=== PATIENT | female | born 1975 | race Hispanic/Latino ===

== ENCOUNTER 2019-03-16 14:38 | Emergency (ER) | payer OTHER ==
[2019-03-16] MEDS ORDERED: LIDOCAINE 2% MPF 5 ML VIAL ONE (15:09)
--- NOTE | 2019-03-16 16:07 | EDPHYS ---
Physician Documentation [facility] Name: Krystyna Colon Age: 43 yrs Sex: Female : 1975 Arrival Date: 03/16/2019 Time: 14:40 Bed 20 Private MD: ED Physician Hany Saavedra HPI: 03/16 16:32 This 43 yrs old Female presents to ER via Ambulatory with complaints of kb Laceration - Finger. 16:33 The patient has a laceration related to: cooking, occurred at home, and there are no kb complicating factors. The injury was accidental. The laceration(s) is(are) located on the palmar aspect of proximal phalanx of left index finger. Onset: The symptoms/episode began/occurred just prior to arrival. Associated signs and symptoms: The patient has no apparent associated signs or symptoms. The patient has not experienced similar symptoms in the past. The patient has not recently seen a physician. Historical: - Allergies: 14:43 Iodine; sv - Immunization history:: Adult Immunizations up to date. - Social history:: Smoking status: . - Ebola Screening: : No symptoms or risks identified at this time. ROS: 16:22 Constitutional: Negative for fever, chills, and weight loss, Cardiovascular: Negative kb for chest pain, palpitations, and edema, Respiratory: Negative for shortness of breath, cough, wheezing, and pleuritic chest pain, Abdomen/GI: Negative for abdominal pain, nausea, vomiting, diarrhea, and constipation, MS/Extremity: Negative for injury and deformity, Neuro: Negative for headache, weakness, numbness, tingling, and seizure. 16:22 Skin: Positive for laceration(s), of the palmar aspect of proximal phalanx of left index finger. Exam: 16:19 Constitutional: This is a well developed, well nourished patient who is awake, alert, kb and in no acute distress. Head/Face: Normocephalic, atraumatic. ENT: Nares patent. No nasal discharge, no septal abnormalities noted. Tympanic membranes are normal and external auditory canals are clear. Oropharynx with no redness, swelling, or masses, exudates, or evidence of obstruction, uvula midline. Mucous membranes moist. Neck: Trachea midline, no thyromegaly or masses palpated, and no cervical lymphadenopathy. Supple, full range of motion without nuchal rigidity, or vertebral point tenderness. No Meningismus. Chest/axilla: Normal chest wall appearance and motion. Nontender with no deformity. No lesions are appreciated. Cardiovascular: Regular rate and rhythm with a normal S1 and S2. No gallops, murmurs, or rubs. Normal PMI, no JVD. No pulse deficits. Respiratory: Lungs have equal breath sounds bilaterally, clear to auscultation and percussion. No rales, rhonchi or wheezes noted. No increased work of breathing, no retractions or nasal flaring. Abdomen/GI: Soft, non-tender, with normal bowel sounds. No distension or tympany. No guarding or rebound. No evidence of tenderness throughout. MS/ Extremity: Pulses equal, no cyanosis. Neurovascular intact. Full, normal range of motion. Neuro: Awake and alert, GCS 15, oriented to person, place, time, and situation. Cranial nerves II-XII grossly intact. Motor strength 5/5 in all extremities. Sensory grossly intact. Cerebellar exam normal. Normal gait. 16:19 Skin: injury, laceration(s), the wound is approximately 2 cm(s), of the palmar aspect of proximal phalanx of left index finger, that can be described as clean, no foreign body, linear, with mild bleeding. Vital Signs: 14:43 BP 109 / 66; Pulse 87; Resp 16; Temp 98.4; Pulse Ox 99% ; Weight 89.81 kg; sv Procedures: 16:04 Nerve block: (digital) of palmar aspect of proximal phalanx of left index finger kb Medication: Lidocaine 1% without epinephrine Marcaine 0.5%, Amount: 4 mls were injected, Effect: the patient's symptoms are unchanged, Set up for procedure. Performed by Kyleigh LONG Patient tolerated well. Laceration: 16:04 Wound Repair of 2cm ( 0.8in ) subcutaneous laceration to left index finger. Linear kb shaped.. Distal neuro/vascular/tendon intact. Anesthesia: Digital block administered with 1% lidocaine. Wound prep: Extensive cleansing with betadine by me, Wound irrigation with saline by ca. Skin closed with 6 5-0 Prolene using interrupted sutures and sterile technique. Dressed with Neosporin. Patient tolerated well. MDM: 15:03 Patient medically screened. kb 16:04 Data reviewed: vital signs, nurses notes. Data interpreted: Pulse oximetry: on room air kb is 99 %. Interpretation: normal. Counseling: I had a detailed discussion with the patient and/or guardian regarding: the historical points, exam findings, and any diagnostic results supporting the discharge/admit diagnosis, the need for outpatient follow up, a family practitioner, to return to the emergency department if symptoms worsen or persist or if there are any questions or concerns that arise at home. Administered Medications: No medications were administered Disposition: 03/17 07:30 Co-signature as Attending Physician, Hany Saavedra MD I agree with the assessment and [facility] plan of care. Disposition: 03/16/19 16:06 Discharged to Home. Impression: Laceration without foreign body of left index finger without damage to nail. - Condition is Stable. - Discharge Instructions: Laceration Care, Adult, [id number]. - Medication Reconciliation Form, Thank You Letter, Antibiotic Education, Prescription Opioid Use form. - Follow up: Emergency Department; When: As needed; Reason: Worsening of condition. Follow up: Private Physician; When: 2 - 3 days; Reason: Recheck today's complaints, Continuance of care, Re-evaluation by your physician. Signatures: Kyleigh Benito, ABIMBOLA-C RETAIL SUPPORT SPECIALIST-Sally Jo RN RN sv Anderson, Corey, MD MD cha Attema, Lee RN RN la1 Corrections: (The following items were deleted from the chart) 03/16 16:26 16:06 03/16/2019 16:06 Discharged to Home. Impression: Laceration without foreign body la1 of left index finger without damage to nail. Condition is Stable. Forms are Medication Reconciliation Form, Thank You Letter, Antibiotic Education, Prescription Opioid Use. Follow up: Emergency Department; When: As needed; Reason: Worsening of condition. Follow up: Private Physician; When: 2 - 3 days; Reason: Recheck today's complaints, Continuance of care, Re-evaluation by your physician. kb
--- NOTE | 2019-03-16 16:07 | ER ---
Nurse's Notes [facility] Name: Krystyna Colon Age: 43 yrs Sex: Female : 1975 Arrival Date: 03/16/2019 Time: 14:40 Bed 20 Private MD: Diagnosis: Laceration without foreign body of left index finger without damage to nail Presentation: 03/16 14:42 Presenting complaint: Patient states: left 2nd digit laceration with a knife while sv cutting meat at home. Transition of care: patient was not received from another setting of care. Complicating Factors: There are no complicating factors for this patient. Onset of symptoms was March 16, 2019. Risk Assessment: Do you want to hurt yourself or someone else? Patient reports no desire to harm self or others. Initial Sepsis Screen: Does the patient meet any 2 criteria? No. Patient's initial sepsis screen is negative. Does the patient have a suspected source of infection? No. Patient's initial sepsis screen is negative. Care prior to arrival: None. 14:42 Method Of Arrival: Ambulatory sv 14:42 Acuity: ADRIANE 3 sv Triage Assessment: 14:42 General: Appears in no apparent distress. comfortable, Behavior is calm, cooperative, sv appropriate for age. Pain: Complains of pain in left index finger. Neuro: Level of Consciousness is awake, alert, obeys commands, Gait is steady. Respiratory: Respiratory effort is even, unlabored, Respiratory pattern is regular, symmetrical. Injury Description: Laceration sustained to left index finger. Historical: - Allergies: 14:43 Iodine; sv - Immunization history:: Adult Immunizations up to date. - Social history:: Smoking status: . - Ebola Screening: : No symptoms or risks identified at this time. Screenin:13 Abuse screen: Denies threats or abuse. Nutritional screening: No deficits noted. la1 Tuberculosis screening: No symptoms or risk factors identified. Fall Risk None identified. Assessment: 15:11 General: Appears in no apparent distress. Behavior is calm, cooperative. Pain: la1 Complains of pain in left index finger. Neuro: Level of Consciousness is awake, alert, obeys commands, Oriented to person, place, time, situation. Cardiovascular: Capillary refill < 3 seconds Patient's skin is warm and dry. Respiratory: Airway is patent Respiratory effort is even, unlabored, Respiratory pattern is regular, symmetrical. GI: No signs and/or symptoms were reported involving the gastrointestinal system. : No signs and/or symptoms were reported regarding the genitourinary system. Musculoskeletal: Circulation, motion, and sensation intact. Injury Description: Laceration sustained to left index finger is contaminated, 0.5 to 2.5 cm long. Vital Signs: 14:43 BP 109 / 66; Pulse 87; Resp 16; Temp 98.4; Pulse Ox 99% ; Weight 89.81 kg; sv ED Course: 14:40 Patient arrived in ED. as 14:42 Triage completed. sv 14:44 Arm band placed on. sv 14:57 Thomas Hollins, RN is Primary Nurse. la1 15:02 Kyleigh Benito FNP-C [facility]. kb 15:03 Hany Saavedra MD is Attending Physician. kb 15:13 Patient has correct armband on for positive identification. la1 16:25 No provider procedures requiring assistance completed. Patient did not have IV access la1 during this emergency room visit. Administered Medications: No medications were administered Outcome: 16:06 Discharge ordered by MD. kb 16:25 Discharged to home ambulatory. la1 16:25 Condition: stable 16:25 Discharge instructions given to patient, Instructed on discharge instructions, follow up and referral plans. medication usage, Demonstrated understanding of instructions, follow-up care. 16:26 Patient left the ED. la1 Signatures: Kyleigh Benito FNP-C FNP-Ckb Verde, Stephanie, RN RN sv Martinez, Amelia as Attema, Lee, RN RN la1
== END 2019-03-16 16:26 | disposition home or self-care (01) ==
LOC: ER 14:38
PROC: 0JQK0ZZ Repair Left Hand Subcutaneous Tissue and Fascia, Open Approach (ICD-10-PCS; principal; 2019-03-16)
DX: S61.211A Laceration without foreign body of left index finger without damage to nail, initial encounter (principal); W45.8XXA Other foreign body or object entering through skin, initial encounter; Y93.G3 Activity, cooking and baking; Y92.000 Kitchen of unspecified non-institutional (private) residence as the place of occurrence of the external cause; Z91.048 Other nonmedicinal substance allergy status
CPT/HCPCS: 64450; 99281

== ENCOUNTER 2019-03-30 07:47 | Emergency (ER) | payer OTHER ==
--- NOTE | 2019-03-30 08:27 | EDPHYS ---
Physician Documentation [facility] Name: Krystyna Colon Age: 43 yrs Sex: Female : 1975 Arrival Date: 03/30/2019 Time: 07:48 Bed 14 Private MD: SHANTEL Physician Hany Saavedra HPI: 03/30 08:18 This 43 yrs old Female presents to ER via Ambulatory with complaints of Suture gwyn Removal. 08:18 The patient has sutures on the left hand. Previous treatment: The patient was initially gwyn treated 15 day(s) ago. Sutures/kulwinder progress: The patient has no c/o's. The wound is well-healing with no redness, swelling, discharge, or dehiscence reported. The patient has not experienced similar symptoms in the past. 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 - Ebola Screening: : Patient negative for fever greater than or equal to 101.5 degrees Fahrenheit, and additional compatible Ebola Virus Disease symptoms Patient denies exposure to infectious person Patient denies travel to an Ebola-affected area in the 21 days before illness onset No symptoms or risks identified at this time. - Social history:: Smoking status: unknown. ROS: 08:18 Constitutional: Negative for fever, chills, and weight loss, Eyes: Negative for injury, gwyn pain, redness, and discharge, ENT: Negative for injury, pain, and discharge, Neck: Negative for injury, pain, and swelling, Cardiovascular: Negative for chest pain, palpitations, and edema, Respiratory: Negative for shortness of breath, cough, wheezing, and pleuritic chest pain, Abdomen/GI: Negative for abdominal pain, nausea, vomiting, diarrhea, and constipation, Back: Negative for injury and pain, : Negative for injury, bleeding, discharge, and swelling, Skin: Negative for injury, rash, and discoloration, Neuro: Negative for headache, weakness, numbness, tingling, and seizure, Psych: Negative for depression, anxiety, suicide ideation, homicidal ideation, and hallucinations, Allergy/Immunology: Negative for hives, rash, and allergies, Endocrine: Negative for neck swelling, polydipsia, polyuria, polyphagia, and marked weight changes, Hematologic/Lymphatic: Negative for swollen nodes, abnormal bleeding, and unusual bruising. 08:18 MS/extremity: Positive for tenderness. Exam: 08:18 Constitutional: This is a well developed, well nourished patient who is awake, alert, gwyn and in no acute distress. Head/Face: Normocephalic, atraumatic. Eyes: Pupils equal round and reactive to light, extra-ocular motions intact. Lids and lashes normal. Conjunctiva and sclera are non-icteric and not injected. Cornea within normal limits. Periorbital areas with no swelling, redness, or edema. ENT: Nares patent. No nasal discharge, no septal abnormalities noted. Tympanic membranes are normal and external auditory canals are clear. Oropharynx with no redness, swelling, or masses, exudates, or evidence of obstruction, uvula midline. Mucous membranes moist. Neck: Trachea midline, no thyromegaly or masses palpated, and no cervical lymphadenopathy. Supple, full range of motion without nuchal rigidity, or vertebral point tenderness. No Meningismus. Chest/axilla: Normal chest wall appearance and motion. Nontender with no deformity. No lesions are appreciated. Cardiovascular: Regular rate and rhythm with a normal S1 and S2. No gallops, murmurs, or rubs. Normal PMI, no JVD. No pulse deficits. Respiratory: Lungs have equal breath sounds bilaterally, clear to auscultation and percussion. No rales, rhonchi or wheezes noted. No increased work of breathing, no retractions or nasal flaring. Abdomen/GI: Soft, non-tender, with normal bowel sounds. No distension or tympany. No guarding or rebound. No evidence of tenderness throughout. Back: No spinal tenderness. No costovertebral tenderness. Full range of motion. MS/ Extremity: Pulses equal, no cyanosis. Neurovascular intact. Full, normal range of motion. Neuro: Awake and alert, GCS 15, oriented to person, place, time, and situation. Cranial nerves II-XII grossly intact. Motor strength 5/5 in all extremities. Sensory grossly intact. Cerebellar exam normal. Normal gait. Psych: Awake, alert, with orientation to person, place and time. Behavior, mood, and affect are within normal limits. 08:18 Skin: Appearance: Color: normal in color, Temperature: normal temperature, Moisture: normal moisture, petechiae, not noted, ecchymosis, not noted, flushing, not noted, diaphoresis is not appreciated. Vital Signs: 08:07 BP 96 / 60; Pulse 68; Resp 16; Temp 98.2; Pulse Ox 100% ; Pain 0/10; iw MDM: 08:06 Patient medically screened. [facility] 03/30 08:18 Order name: Suture Removal; Complete Time: 08:32 [facility] Administered Medications: No medications were administered Disposition: 03/30/19 08:20 Discharged to Home. Impression: Encounter for removal of sutures. - Condition is Stable. - Discharge Instructions: Stitches, Kulwinder, or Adhesive Wound Closure, Suture Removal, Care After. - Medication Reconciliation Form, Thank You Letter, Antibiotic Education, Prescription Opioid Use form. - Follow up: Private Physician; When: 5 - 6 days; Reason: Recheck today's complaints, Continuance of care, Re-evaluation by your physician. - Problem is new. - Symptoms have improved. Signatures: Hany Saavedra MD MD cha Williams, Irene RN RN Corrections: (The following items were deleted from the chart) 08:37 08:20 03/30/2019 08:20 Discharged to Home. Impression: Encounter for removal of iw sutures. Condition is Stable. Forms are Medication Reconciliation Form, Thank You Letter, Antibiotic Education, Prescription Opioid Use. Follow up: Private Physician; When: 5 - 6 days; Reason: Recheck today's complaints, Continuance of care, Re-evaluation by your physician. Problem is new. Symptoms have improved. [facility]
--- NOTE | 2019-03-30 08:27 | ER ---
Nurse's Notes [facility] Name: Krystyna Colon Age: 43 yrs Sex: Female : 1975 Arrival Date: 03/30/2019 Time: 07:48 Bed 14 Private MD: Diagnosis: Encounter for removal of sutures Presentation: 03/30 08:04 Presenting complaint: Patient states: needs sutures removed from left index finger, was iw seen here 03-16-19. 08:05 Transition of care: patient was not received from another setting of care. Onset of iw symptoms was March 16, 2019. Risk Assessment: Do you want to hurt yourself or someone else?. Initial Sepsis Screen: Does the patient meet any 2 criteria? No. Patient's initial sepsis screen is negative. Does the patient have a suspected source of infection? No. Patient's initial sepsis screen is negative. Care prior to arrival: None. 08:05 Method Of Arrival: Ambulatory iw 08:05 Acuity: ADRIANE 5 iw Triage Assessment: 08:36 General: Appears in no apparent distress. Behavior is calm, cooperative. 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 - Ebola Screening: : Patient negative for fever greater than or equal to 101.5 degrees Fahrenheit, and additional compatible Ebola Virus Disease symptoms Patient denies exposure to infectious person Patient denies travel to an Ebola-affected area in the 21 days before illness onset No symptoms or risks identified at this time. - Social history:: Smoking status: unknown. Screenin:30 Abuse screen: Denies threats or abuse. Denies injuries from another. Nutritional iw screening: No deficits noted. Tuberculosis screening: No symptoms or risk factors identified. Fall Risk None identified. Assessment: 08:30 General: Appears in no apparent distress. comfortable, Behavior is calm, cooperative. iw Pain: Denies pain. Neuro: Level of Consciousness is awake, alert, obeys commands, Oriented to person, place, time, situation, Moves all extremities. Full function. Cardiovascular: Patient's skin is warm and dry. Respiratory: Respiratory effort is even, unlabored, Respiratory pattern is regular. Derm: Skin is intact, is healthy with good turgor. Musculoskeletal: Range of motion: intact in all extremities. Injury Description: Laceration sustained to palmar aspect of distal phalanx of left index finger is sutures removed by Dr. Saavedra, skin intact, no s/s of infection, wound care complete, dressing in place. Vital Signs: 08:07 BP 96 / 60; Pulse 68; Resp 16; Temp 98.2; Pulse Ox 100% ; Pain 0/10; iw ED Course: 07:48 Patient arrived in ED. as 08:01 Constance Orozco, RN is Primary Nurse. iw 08:06 Triage completed. iw 08:06 Hany Saavedra MD is Attending Physician. [facility] 08:07 Arm band placed on. iw 08:30 Patient has correct armband on for positive identification. iw 08:30 No provider procedures requiring assistance completed. iw 08:36 Patient did not have IV access during this emergency room visit. iw Administered Medications: No medications were administered Outcome: 08:20 Discharge ordered by . gwyn 08:36 Discharged to home ambulatory. iw 08:36 Condition: good 08:36 Discharge instructions given to patient, Instructed on discharge instructions, follow up and referral plans. Demonstrated understanding of instructions, follow-up care, wound care. 08:37 Patient left the ED. iw Signatures: Hany Saavedra MD MD cha Martinez, Amelia as Constance Orozco, RN RN iw Corrections: (The following items were deleted from the chart) 08:06 08:04 Presenting complaint: Patient states: needs sutures removed from left index iw finger iw
[2019-03-30 09:04] VITALS: BP 96/60; TEMP 98.2; O2SAT 100
== END 2019-03-30 08:37 | disposition home or self-care (01) ==
LOC: ER 07:47
DX: Z48.02 Encounter for removal of sutures (principal)
CPT/HCPCS: 99281

== ENCOUNTER 2022-08-20 11:05 | Emergency (ER) | payer OTHER ==
--- OUTSIDE RECORDS SUMMARY | 2022-08-20 11:11 | XMS REPORT | Continuity of Care Document ---
:1975 Author Organization [facility] t Address [address] [place] [address] Care Team Providers Name Role Phone Crow Bonds Primary Care Physician [phone] Problems This patient has no known problems. Allergies, Adverse Reactions, Alerts Allergy Allergy Status Severity Reaction(s) Onset Inactive Treating Comm ents Source Name Type Date Date Clinician Iodine Propensi Active Strong - ty to 09-14 Oral adverse 00:00: reaction 00 to drug Iodine Propensi Active ty to 04-12 adverse 00:00: reaction 00 to drug Medications Ordered Filled Start Stop Current Ordering Indication Dosage Frequency Signature Comments Components Source Medication Medication Date Date Medication? Clinician (SIG) Name Name JAVIER NESHA No TABLETA 03-21 TODOS LOS D 00:00: 00 TOME NESHA 2021-0 No 500 TABLETA 03-21 TODOS LOS D 00:00: 00 TOME NESHA 2021-0 No TABLETA 03-21 TODOS LOS D 00:00: 00 TOME NESHA 2021-0 No TABLETA 03-21 TODOS LOS D 00:00: 00 TOME NESHA 2021-0 No TABLETA 07 TODOS LOS D 00:00: 00 TOME NESHA 2021-0 No TABLETA 07 TODOS LOS D 00:00: 00 Dose 2021-0 No Unknown 3-03 00:00: 00 Dose 2021-0 No Unknown 3-03 00:00: 00 Dose 2021-0 No Unknown 3-03 00:00: 00 Dose 2021-0 No Unknown 3-03 00:00: 00 Dose 2021-0 No Unknown 3-03 00:00: 00 Dose 2022-0 No Unknown 3-03 00:00: 00 Dose 2022-0 No Unknown 3-03 00:00: 00 Dose 2022-0 No Unknown 3-03 00:00: 00 Dose 2022-0 No Unknown 3-03 00:00: 00 Dose 2022-0 No Unknown 3-03 00:00: 00 Dose 2022-0 No Unknown 3-03 00:00: 00 Dose 2022-0 No Unknown 3-03 00:00: 00 Dose 2022-0 No Unknown 3-03 00:00: 00 Dose 2022-0 No Unknown 3-03 00:00: 00 Dose 2022-0 No Unknown 3-03 00:00: 00 Dose 2022-0 No Unknown 3-03 00:00: 00 Dose 2022-0 No Unknown 3-03 00:00: 00 Dose 2022-0 No Unknown 3-03 00:00: 00 Dose 1-1 No Unknown 1-15 00:00: 00 Dose 1-1 No Unknown 1-15 00:00: 00 Dose 1-1 No Unknown 1-15 00:00: 00 Dose 1-1 No Unknown 1-15 00:00: 00 Dose 1-1 No Unknown 1-15 00:00: 00 Dose 1-1 No Unknown 1-15 00:00: 00 Dose 1-1 No Unknown 1-15 00:00: 00 Dose 1-1 No Unknown 1-15 00:00: 00 Dose 1-1 No Unknown 1-15 00:00: 00 Dose 1-1 No Unknown 1-15 00:00: 00 Dose 1-1 No Unknown 1-15 00:00: 00 Dose 1-1 No Unknown 1-15 00:00: 00 Dose 1-1 No Unknown 1-15 00:00: 00 Dose 1-1 No Unknown 1-15 00:00: 00 Dose 1-1 No Unknown 1-15 00:00: 00 Dose 1-1 No Unknown 1-15 00:00: 00 Dose 1-1 No Unknown 1-15 00:00: 00 Dose 1-1 No Unknown 1-15 00:00: 00 metformin 2021-0 No 1mg 500 mg 7-22 tablet 00:00: 00 metformin 2021-0 No 1mg 500 mg 7-22 tablet 00:00: 00 metformin 2021-0 No 1mg 500 mg 7-22 tablet 00:00: 00 metformin 2020-0 No 1mg 500 mg 7-22 tablet 00:00: 00 metformin 1-0 No 1mg 500 mg 7-22 tablet 00:00: 00 metformin 2020-0 No 1mg 500 mg 7-22 tablet 00:00: 00 Immunizations Ordered Immunization Filled Immunization Date Status Commen ts Source Name Name Nancy YE-Kari 2021-07-21 Completed Vaccine 00:00:00 Nancy CARTERID-19 2021-07-21 Completed Vaccine 00:00:00 Nancy CARTERID-19 2021-07-21 Completed Vaccine 00:00:00 Nancy CARTERID-19 2021-07-21 Completed Vaccine 00:00:00 Nancy CARTERID-19 2021-07-21 Completed Vaccine 00:00:00 Nancy CARTERID-19 2021-07-21 Completed Vaccine 00:00:00 Tdap 2020-12-26 Completed 00:00:00 Tdap 2020-12-26 Completed 00:00:00 Tdap 2020-12-26 Completed 00:00:00 Tdap 2020-12-26 Completed 00:00:00 Tdap 2020-12-26 Completed 00:00:00 Tdap 2020-12-26 Completed 00:00:00 Vital Signs Vital Name Observation Time Observation Value Comments Source BP Systolic 2022-06-06 11:30:00 94 mm[Hg] BP Diastolic 2022-06-06 11:30:00 63 mm[Hg] Weight Measured 2022-06-06 11:30:00 200.00 pounds Height Measured 2022-06-06 11:30:00 62.56 inches Body Temperature 2022-06-06 11:30:00 97.60 degrees Heart Rate 2022-06-06 11:30:00 85.00 /min Respiratory Rate 2022-06-06 11:30:00 BP Systolic 2022-05-09 11:25:00 117 mm[Hg] BP Diastolic 2022-05-09 11:25:00 69 mm[Hg] Weight Measured 2022-05-09 11:25:00 200.20 pounds Height Measured 2022-05-09 11:25:00 62.56 inches Body Temperature 2022-05-09 11:25:00 97.60 degrees Heart Rate 2022-05-09 11:25:00 92.00 /min Respiratory Rate 2022-05-09 11:25:00 BP Systolic 2022-04-23 10:01:00 92 mm[Hg] BP Diastolic 2022-04-23 10:01:00 67 mm[Hg] Weight Measured 2022-04-23 10:01:00 197.20 pounds Height Measured 2022-04-23 10:01:00 62.56 inches Body Temperature 2022-04-23 10:01:00 97.80 degrees Heart Rate 2022-04-23 10:01:00 78.00 /min Respiratory Rate 2022-04-23 10:01:00 BP Systolic 2022-04-16 16:18:00 107 mm[Hg] BP Diastolic 2022-04-16 16:18:00 72 mm[Hg] Weight Measured 2022-04-16 16:18:00 198.20 pounds Height Measured 2022-04-16 16:18:00 62.56 inches Body Temperature 2022-04-16 16:18:00 97.90 degrees Heart Rate 2022-04-16 16:18:00 90.00 /min Respiratory Rate 2022-04-16 16:18:00 BP Systolic 2022-04-03 13:54:00 97 mm[Hg] BP Diastolic 2022-04-03 13:54:00 61 mm[Hg] Weight Measured 2022-04-03 13:54:00 203.00 pounds Height Measured 2022-04-03 13:54:00 62.56 inches Body Temperature 2022-04-03 13:54:00 97.80 degrees Heart Rate 2022-04-03 13:54:00 77.00 /min Respiratory Rate 2022-04-03 13:54:00 25.00 /min BP Systolic 2022-03-21 09:23:00 92 mm[Hg] BP Diastolic 2022-03-21 09:23:00 62 mm[Hg] Weight Measured 2022-03-21 09:23:00 199.00 pounds Height Measured 2022-03-21 09:23:00 62.56 inches Body Temperature 2022-03-21 09:23:00 98.50 degrees Heart Rate 2022-03-21 09:23:00 75.00 /min Respiratory Rate 2022-03-21 09:23:00 24.00 /min BP Systolic 2021-09-14 08:23:00 102 mm[Hg] BP Diastolic 2021-09-14 08:23:00 70 mm[Hg] Weight Measured 2021-09-14 08:23:00 191.00 pounds Height Measured 2021-09-14 08:23:00 62.56 inches Body Temperature 2021-09-14 08:23:00 98.20 degrees Heart Rate 2021-09-14 08:23:00 78.00 /min Respiratory Rate 2021-09-14 08:23:00 16.00 /min BP Systolic 2021-05-29 08:18:00 105 mm[Hg] BP Diastolic 2021-05-29 08:18:00 70 mm[Hg] Weight Measured 2021-05-29 08:18:00 192.60 pounds Height Measured 2021-05-29 08:18:00 62.56 inches Body Temperature 2021-05-29 08:18:00 98.30 degrees Heart Rate 2021-05-29 08:18:00 75.00 /min Respiratory Rate 2021-05-29 08:18:00 17.00 /min BP Systolic 2021-02-02 11:25:00 101 mm[Hg] BP Diastolic 2021-02-02 11:25:00 68 mm[Hg] Weight Measured 2021-02-02 11:25:00 216.60 pounds Height Measured 2021-02-02 11:25:00 62.56 inches Body Temperature 2021-02-02 11:25:00 99.30 degrees Heart Rate 2021-02-02 11:25:00 78.00 /min Respiratory Rate 2021-02-02 11:25:00 16.00 /min BP Systolic 2020-12-26 09:41:00 128 mm[Hg] BP Diastolic 2020-12-26 09:41:00 77 mm[Hg] Weight Measured 2020-12-26 09:41:00 220.40 pounds Height Measured 2020-12-26 09:41:00 62.56 inches Body Temperature 2020-12-26 09:41:00 98.10 degrees Heart Rate 2020-12-26 09:41:00 77.00 /min Respiratory Rate 2020-12-26 09:41:00 17.00 /min BP Systolic 2017-04-12 09:59:00 112 mm[Hg] BP Diastolic 2017-04-12 09:59:00 75 mm[Hg] Weight Measured 2017-04-12 09:59:00 202.20 pounds Height Measured 2017-04-12 09:59:00 62.00 inches Body Temperature 2017-04-12 09:59:00 98.30 degrees Heart Rate 2017-04-12 09:59:00 74.00 /min Respiratory Rate 2017-04-12 09:59:00 18.00 /min Procedures This patient has no known procedures. Plan of Care Planned Activity Planned Date Details Comments Source Goal Plan of Care Note [code = 71214-5] Goal Plan of Care Note [code = 97587-0] Goal Plan of Care Note [code = 90635-8] Goal Plan of Care Note [code = 90928-6] Goal Plan of Care Note [code = 93386-2] Goal Plan of Care Note [code = 39304-4] Goal Plan of Care Note [code = 62747-6] Goal Plan of Care Note [code = 23954-0] Goal Plan of Care Note [code = 02806-2] Goal Plan of Care Note [code = 32661-3] Goal Plan of Care Note [code = 93590-3] Goal Plan of Care Note [code = 19321-1] Goal Plan of Care Note [code = 02186-4] Goal Plan of Care Note [code = 11909-9] Goal Plan of Care Note [code = 35990-8] Goal Plan of Care Note [code = 01696-6] Goal Plan of Care Note [code = 17397-8] Goal Plan of Care Note [code = 68554-7] Goal Plan of Care Note [code = 11535-4] Goal Plan of Care Note [code = 29277-6] Goal Plan of Care Note [code = 02327-9] Goal Plan of Care Note [code = 81784-7] Goal Plan of Care Note [code = 70050-2] Goal Plan of Care Note [code = 29302-1] Goal Plan of Care Note [code = 11269-5] Goal Plan of Care Note [code = 20370-8] Goal Plan of Care Note [code = 90482-6] Goal Plan of Care Note [code = 62789-8] Goal Plan of Care Note [code = 94907-0] Goal Plan of Care Note [code = 42958-2] Goal Plan of Care Note [code = 28146-4] Goal Plan of Care Note [code = 15518-6] Goal Plan of Care Note [code = 69433-2] Goal Plan of Care Note [code = 38670-5] Goal Plan of Care Note [code = 59662-2] Goal Plan of Care Note [code = 01762-2] Goal Plan of Care Note [code = 09139-5] Goal Plan of Care Note [code = 87531-2] Goal Plan of Care Note [code = 91253-4] Goal Plan of Care Note [code = 98670-6] Goal Plan of Care Note [code = 50935-1] Goal Plan of Care Note [code = 32605-6] Goal Plan of Care Note [code = 95078-2] Goal Plan of Care Note [code = 09808-2] Goal Plan of Care Note [code = 24049-7] Goal Plan of Care Note [code = 35846-0] Goal Plan of Care Note [code = 30333-5] Goal Plan of Care Note [code = 07317-8] Goal Plan of Care Note [code = 72116-1] Goal Plan of Care Note [code = 37904-4] Goal Plan of Care Note [code = 22718-3] Goal Plan of Care Note [code = 34942-5] Goal Plan of Care Note [code = 32661-4] Goal Plan of Care Note [code = 54839-8] Goal Plan of Care Note [code = 53056-4] Goal Plan of Care Note [code = 27470-4] Goal Plan of Care Note [code = 42587-0] Goal Plan of Care Note [code = 77271-8] Goal Plan of Care Note [code = 47314-6] Goal Plan of Care Note [code = 76389-9] Goal Plan of Care Note [code = 27876-0] Goal Plan of Care Note [code = 12148-0] Goal Plan of Care Note [code = 24393-4] Goal Plan of Care Note [code = 00791-2] Goal Plan of Care Note [code = 12323-6] Goal Plan of Care Note [code = 09267-6] Goal Plan of Care Note [code = 69102-8] Goal Plan of Care Note [code = 28043-2] Goal Plan of Care Note [code = 87014-5] Goal Plan of Care Note [code = 55073-2] Goal Plan of Care Note [code = 83595-3] Goal Plan of Care Note [code = 94977-3] Goal Plan of Care Note [code = 51225-6] Goal Plan of Care Note [code = 31400-6] Goal Plan of Care Note [code = 96656-2] Goal Plan of Care Note [code = 60795-2] Goal Plan of Care Note [code = 57846-2] Goal Plan of Care Note [code = 30560-8] Goal Plan of Care Note [code = 82460-5] Goal Plan of Care Note [code = 53044-6] Goal Plan of Care Note [code = 64350-5] Goal Plan of Care Note [code = 09564-6] Goal Plan of Care Note [code = 62410-2] Goal Plan of Care Note [code = 34878-2] Goal Plan of Care Note [code = 25036-3] Goal Plan of Care Note [code = 23969-1] Encounters Start End Encounter Admission Attending Care Care Encounter Source Date/Time Date/Time Type Type Clinicians Facility Department ID 2022-07-04 2022-07-04 Outpatient [facility] [id number] 022 Lex 16:22:47 16:22:47 1221 F Nixon 2022-06-06 2022-06-06 Outpatient [facility] [id number] 022 Lex 11:14:03 11:14:03 1123 F Nixon 2022-06-06 2022-06-06 Outpatient [id number]- [id number] 2d h07bn2-0 00:00:00 00:00:00 Visit 749b-471f 49b-471f-b -d704-j89 475-b175fa [id number] 32w848 2022-05-09 2022-05-09 Outpatient [facility] 26864-9 022 Lex 11:30:50 11:30:50 1026 F Nixon 2022-05-09 2022-05-09 Outpatient [id number]- [id number] 3c ir43m6-4 00:00:00 00:00:00 Visit 5754-48bc 754-48bc-9 -5xf6-41v cd0-45cbf9 ap9h98x78 d93a23 2022-04-23 2022-04-23 Outpatient SFA SFA 60240-8 022 Lex 09:54:10 09:54:10 1010 F Nixon 2022-04-23 2022-04-23 Outpatient [id number]- [id number] [id number] 00:00:00 00:00:00 Visit 3080-7211 612-4258-b -r89m-9s3 48e-7w1382 521v6y425 j8d437 2022-04-16 2022-04-16 Outpatient SFA SFA 76545-1 022 Lex 16:03:32 16:03:32 1003 F Nixon 2022-04-16 2022-04-16 Outpatient [id number]- [id number] 50w95u-8 00:00:00 00:00:00 Visit 8j65-1bb9 y20-1tl4-w -j914-d2l 394-y0f168 298765pj8 152ac7 2022-04-03 2022-04-03 Outpatient a54oaz0e- [id number] a3 8fuz4q-i 00:00:00 00:00:00 Visit f8jd-518c 3ec-496a-9 -911b-b84 11b-w82397 4069bdaaa 9bdaaa 2022-03-21 2022-03-21 Outpatient [id number]- [id number] me8092-v 00:00:00 00:00:00 Visit h7k2-4434 7i0-9734-g -abfa-73d bfa-73d8e5 8o9885x45 356b98 Results Test Description Test Time Test Comments Results Result Comments Source H. PYLORI (BREATH) 2021-09-15 14:11:11 Test Item Value Reference Range Interpretation Comme nts H. PYLORI (BREATH) (test code NEGATIVE NEGATIVE UNLESS OTHERWISE INDICATED, ALL = 76105) TESTING PERFORM [facility] [address] [place] [id number] HOURLY SHIFT: REYNA FUNK M.D. CLIA NUMBER [id number] [facility] ACCREDITATION N O. [id number] H. PYLORI (BREATH)2021-09-15 00:00:00 Test Item Value Reference Range Interpretation Comments H. PYLORI (BREATH) (test code = NEGATIVE 18990) H. PYLORI (BREATH)2021-09-15 00:00:00 Test Item Value Reference Range Interpretation Comments H. PYLORI (BREATH) (test code = NEGATIVE 50057) H. PYLORI (BREATH)2021-09-15 00:00:00 Test Item Value Reference Range Interpretation Comments H. PYLORI (BREATH) (test code = NEGATIVE 01101) H. PYLORI (BREATH)2021-09-15 00:00:00 Test Item Value Reference Range Interpretation Comments H. PYLORI (BREATH) (test code = NEGATIVE 24757) H. PYLORI (BREATH)2021-09-15 00:00:00 Test Item Value Reference Range Interpretation Comments H. PYLORI (BREATH) (test code = NEGATIVE 77402) H. PYLORI (BREATH)2021-09-15 00:00:00 Test Item Value Reference Range Interpretation Comments H. PYLORI (BREATH) (test code = NEGATIVE 98894) H. PYLORI (BREATH)2021-09-15 00:00:00 Test Item Value Reference Range Interpretation Comments H. PYLORI (BREATH) (test code = NEGATIVE 82732) H. PYLORI (BREATH)2021-09-15 00:00:00 Test Item Value Reference Range Interpretation Comments H. PYLORI (BREATH) (test code = NEGATIVE 99161) H. PYLORI (BREATH)2021-09-15 00:00:00 Test Item Value Reference Range Interpretation Comments H. PYLORI (BREATH) (test code = NEGATIVE 93065) H. PYLORI (BREATH)2021-09-15 00:00:00 Test Item Value Reference Range Interpretation Comments H. PYLORI (BREATH) (test code = NEGATIVE 29994) H. PYLORI (BREATH)2021-09-15 00:00:00 Test Item Value Reference Range Interpretation Comments H. PYLORI (BREATH) (test code = NEGATIVE 82885) H. PYLORI (BREATH)2021-09-15 00:00:00 Test Item Value Reference Range Interpretation Comments H. PYLORI (BREATH) (test code = NEGATIVE 58064) COMPREHENSIVE METABOLIC [id number] 00:00:00 Test Item Value Reference Range Interpretation Comments GLUCOSE (test code = 2217) 116 MG/DL BUN (test code = 2208) 11 MG/DL CREATININE (test code = 2214) 0.92 MG/DL eGFR AMER. (test code 87 ML/MIN/1.73 = 16336) eGFR NON- AMER. (test 75 ML/MIN/1.73 code = 82094) CALC BUN/CREAT (test code = 12 RATIO 2235) SODIUM (test code = 2231) 140 MEQ/L POTASSIUM (test code = 2228) 4.1 MEQ/L CHLORIDE (test code = 2215) 104 MEQ/L CARBON DIOXIDE (test code = 25 MEQ/L 2205) CALCIUM (test code = 2209) 9.6 MG/DL PROTEIN, TOTAL (test code = 6.7 G/DL 2228) ALBUMIN (test code = 2201) 4.1 G/DL CALC GLOBULIN (test code = 2.6 G/DL 2239) CALC A/G RATIO (test code = 1.6 RATIO 2234) BILIRUBIN, TOTAL (test code = 0.8 MG/DL 2206) ALKALINE PHOSPHATASE (test 103 U/L code = 2204) AST (test code = 2218) 17 U/L ALT (test code = 2219) 21 U/L COMPREHENSIVE METABOLIC [id number] 00:00:00 Test Item Value Reference Range Interpretation Comments GLUCOSE (test code = 2217) 116 MG/DL BUN (test code = 2208) 11 MG/DL CREATININE (test code = 2214) 0.92 MG/DL eGFR AMER. (test code 87 ML/MIN/1.73 = 43648) eGFR NON- AMER. (test 75 ML/MIN/1.73 code = 43452) CALC BUN/CREAT (test code = 12 RATIO 2235) SODIUM (test code = 2231) 140 MEQ/L POTASSIUM (test code = 2228) 4.1 MEQ/L CHLORIDE (test code = 2215) 104 MEQ/L CARBON DIOXIDE (test code = 25 MEQ/L 220) CALCIUM (test code = 2209) 9.6 MG/DL PROTEIN, TOTAL (test code = 6.7 G/DL 2228) ALBUMIN (test code = 2201) 4.1 G/DL CALC GLOBULIN (test code = 2.6 G/DL 2240) CALC A/G RATIO (test code = 1.6 RATIO 2234) BILIRUBIN, TOTAL (test code = 0.8 MG/DL 2206) ALKALINE PHOSPHATASE (test 103 U/L code = 2204) AST (test code = 2218) 17 U/L ALT (test code = 2219) 21 U/L HEMOGLOBIN [id number] 00:00:00 Test Item Value Reference Range Interpretation Comments HEMOGLOBIN A1c (test code = 36251) 6.3 % HEMOGLOBIN [id number] 00:00:00 Test Item Value Reference Range Interpretation Comments HEMOGLOBIN A1c (test code = 62618) 6.3 % HEMOGLOBIN [id number] 00:00:00 Test Item Value Reference Range Interpretation Comments HEMOGLOBIN A1c (test code = 01516) 6.3 % COMPREHENSIVE METABOLIC [id number] 00:00:00 Test Item Value Reference Range Interpretation Comments GLUCOSE (test code = 2217) 116 MG/DL BUN (test code = 8) 11 MG/DL CREATININE (test code = 2214) 0.92 MG/DL eGFR AMER. (test code 87 ML/MIN/1.73 = 41060) eGFR NON- AMER. (test 75 ML/MIN/1.73 code = 51065) CALC BUN/CREAT (test code = 12 RATIO 2235) SODIUM (test code = 2231) 140 MEQ/L POTASSIUM (test code = 2228) 4.1 MEQ/L CHLORIDE (test code = 2215) 104 MEQ/L CARBON DIOXIDE (test code = 25 MEQ/L 2205) CALCIUM (test code = 2209) 9.6 MG/DL PROTEIN, TOTAL (test code = 6.7 G/DL 2228) ALBUMIN (test code = 2201) 4.1 G/DL CALC GLOBULIN (test code = 2.6 G/DL 2240) CALC A/G RATIO (test code = 1.6 RATIO 2234) BILIRUBIN, TOTAL (test code = 0.8 MG/DL 2206) ALKALINE PHOSPHATASE (test 103 U/L code = 2204) AST (test code = 2218) 17 U/L ALT (test code = 2219) 21 U/L COMPREHENSIVE METABOLIC [id number] 00:00:00 Test Item Value Reference Range Interpretation Comments GLUCOSE (test code = 2217) 116 MG/DL BUN (test code = 2208) 11 MG/DL CREATININE (test code = 2214) 0.92 MG/DL eGFR AMER. (test code 87 ML/MIN/1.73 = 00245) eGFR NON- AMER. (test 75 ML/MIN/1.73 code = 99655) CALC BUN/CREAT (test code = 12 RATIO 2235) SODIUM (test code = 2231) 140 MEQ/L POTASSIUM (test code = 2228) 4.1 MEQ/L CHLORIDE (test code = 2215) 104 MEQ/L CARBON DIOXIDE (test code = 25 MEQ/L 2205) CALCIUM (test code = 2209) 9.6 MG/DL PROTEIN, TOTAL (test code = 6.7 G/DL 2228) ALBUMIN (test code = 2201) 4.1 G/DL CALC GLOBULIN (test code = 2.6 G/DL 2239) CALC A/G RATIO (test code = 1.6 RATIO 2234) BILIRUBIN, TOTAL (test code = 0.8 MG/DL 2206) ALKALINE PHOSPHATASE (test 103 U/L code = 2204) AST (test code = 2218) 17 U/L ALT (test code = 2219) 21 U/L HEMOGLOBIN [id number] 00:00:00 Test Item Value Reference Range Interpretation Comments HEMOGLOBIN A1c (test code = 59590) 6.3 % HEMOGLOBIN [id number] 00:00:00 Test Item Value Reference Range Interpretation Comments HEMOGLOBIN A1c (test code = 12628) 6.3 % HEMOGLOBIN [id number] 00:00:00 Test Item Value Reference Range Interpretation Comments HEMOGLOBIN A1c (test code = 07215) 6.3 % COMPREHENSIVE METABOLIC [id number] 00:00:00 Test Item Value Reference Range Interpretation Comments GLUCOSE (test code = 2217) 116 MG/DL BUN (test code = 2208) 11 MG/DL CREATININE (test code = 2214) 0.92 MG/DL eGFR AMER. (test code 87 ML/MIN/1.73 = 63092) eGFR NON- AMER. (test 75 ML/MIN/1.73 code = 06619) CALC BUN/CREAT (test code = 12 RATIO 2235) SODIUM (test code = 2231) 140 MEQ/L POTASSIUM (test code = 2228) 4.1 MEQ/L CHLORIDE (test code = 2215) 104 MEQ/L CARBON DIOXIDE (test code = 25 MEQ/L 2205) CALCIUM (test code = 2209) 9.6 MG/DL PROTEIN, TOTAL (test code = 6.7 G/DL 2228) ALBUMIN (test code = 2201) 4.1 G/DL CALC GLOBULIN (test code = 2.6 G/DL 2240) CALC A/G RATIO (test code = 1.6 RATIO 2234) BILIRUBIN, TOTAL (test code = 0.8 MG/DL 2206) ALKALINE PHOSPHATASE (test 103 U/L code = 2204) AST (test code = 2218) 17 U/L ALT (test code = 2219) 21 U/L COMPREHENSIVE METABOLIC [id number] 00:00:00 Test Item Value Reference Range Interpretation Comments GLUCOSE (test code = 2217) 116 MG/DL BUN (test code = 2208) 11 MG/DL CREATININE (test code = 2214) 0.92 MG/DL eGFR AMER. (test code 87 ML/MIN/1.73 = 46472) eGFR NON- AMER. (test 75 ML/MIN/1.73 code = 08623) CALC BUN/CREAT (test code = 12 RATIO 2235) SODIUM (test code = 2231) 140 MEQ/L POTASSIUM (test code = 2228) 4.1 MEQ/L CHLORIDE (test code = 2215) 104 MEQ/L CARBON DIOXIDE (test code = 25 MEQ/L 2205) CALCIUM (test code = 2209) 9.6 MG/DL PROTEIN, TOTAL (test code = 6.7 G/DL 2228) ALBUMIN (test code = 2201) 4.1 G/DL CALC GLOBULIN (test code = 2.6 G/DL 2240) CALC A/G RATIO (test code = 1.6 RATIO 2234) BILIRUBIN, TOTAL (test code = 0.8 MG/DL 2206) ALKALINE PHOSPHATASE (test 103 U/L code = 2204) AST (test code = 2218) 17 U/L ALT (test code = 2219) 21 U/L HEMOGLOBIN [id number] 00:00:00 Test Item Value Reference Range Interpretation Comments HEMOGLOBIN A1c (test code = 30316) 6.3 % HEMOGLOBIN [id number] 00:00:00 Test Item Value Reference Range Interpretation Comments HEMOGLOBIN A1c (test code = 24572) 6.3 % HEMOGLOBIN [id number] 00:00:00 Test Item Value Reference Range Interpretation Comments HEMOGLOBIN A1c (test code = 09539) 6.3 % COMPREHENSIVE METABOLIC [id number] 00:00:00 Test Item Value Reference Range Interpretation Comments GLUCOSE (test code = 2217) 116 MG/DL BUN (test code = 2208) 11 MG/DL CREATININE (test code = 2214) 0.92 MG/DL eGFR AMER. (test code 87 ML/MIN/1.73 = 43144) eGFR NON- AMER. (test 75 ML/MIN/1.73 code = 28024) CALC BUN/CREAT (test code = 12 RATIO 2235) SODIUM (test code = 2231) 140 MEQ/L POTASSIUM (test code = 2228) 4.1 MEQ/L CHLORIDE (test code = 2215) 104 MEQ/L CARBON DIOXIDE (test code = 25 MEQ/L 2205) CALCIUM (test code = 2209) 9.6 MG/DL PROTEIN, TOTAL (test code = 6.7 G/DL 222) ALBUMIN (test code = 2201) 4.1 G/DL CALC GLOBULIN (test code = 2.6 G/DL 2240) CALC A/G RATIO (test code = 1.6 RATIO 2234) BILIRUBIN, TOTAL (test code = 0.8 MG/DL 2206) ALKALINE PHOSPHATASE (test 103 U/L code = 2204) AST (test code = 2218) 17 U/L ALT (test code = 2219) 21 U/L COMPREHENSIVE METABOLIC [id number] 00:00:00 Test Item Value Reference Range Interpretation Comments GLUCOSE (test code = 2217) 116 MG/DL BUN (test code = 2208) 11 MG/DL CREATININE (test code = 2214) 0.92 MG/DL eGFR AMER. (test code 87 ML/MIN/1.73 = 66215) eGFR NON- AMER. (test 75 ML/MIN/1.73 code = 82661) CALC BUN/CREAT (test code = 12 RATIO 2235) SODIUM (test code = 2231) 140 MEQ/L POTASSIUM (test code = 2228) 4.1 MEQ/L CHLORIDE (test code = 2215) 104 MEQ/L CARBON DIOXIDE (test code = 25 MEQ/L 2205) CALCIUM (test code = 2209) 9.6 MG/DL PROTEIN, TOTAL (test code = 6.7 G/DL 2228) ALBUMIN (test code = 2201) 4.1 G/DL CALC GLOBULIN (test code = 2.6 G/DL 2240) CALC A/G RATIO (test code = 1.6 RATIO 2234) BILIRUBIN, TOTAL (test code = 0.8 MG/DL 2206) ALKALINE PHOSPHATASE (test 103 U/L code = 2204) AST (test code = 2218) 17 U/L ALT (test code = 2219) 21 U/L HEMOGLOBIN [id number] 00:00:00 Test Item Value Reference Range Interpretation Comments HEMOGLOBIN A1c (test code = 58902) 6.3 % COMPREHENSIVE METABOLIC [id number] 00:00:00 Test Item Value Reference Range Interpretation Comments GLUCOSE (test code = 2217) 116 MG/DL BUN (test code = 2208) 11 MG/DL CREATININE (test code = 2214) 0.92 MG/DL eGFR AMER. (test code 87 ML/MIN/1.73 = 35394) eGFR NON- AMER. (test 75 ML/MIN/1.73 code = 63829) CALC BUN/CREAT (test code = 12 RATIO 2235) SODIUM (test code = 2231) 140 MEQ/L POTASSIUM (test code = 2228) 4.1 MEQ/L CHLORIDE (test code = 2215) 104 MEQ/L CARBON DIOXIDE (test code = 25 MEQ/L 2205) CALCIUM (test code = 2209) 9.6 MG/DL PROTEIN, TOTAL (test code = 6.7 G/DL 2228) ALBUMIN (test code = 2201) 4.1 G/DL CALC GLOBULIN (test code = 2.6 G/DL 2240) CALC A/G RATIO (test code = 1.6 RATIO 2234) BILIRUBIN, TOTAL (test code = 0.8 MG/DL 2206) ALKALINE PHOSPHATASE (test 103 U/L code = 2204) AST (test code = 2218) 17 U/L ALT (test code = 2219) 21 U/L COMPREHENSIVE METABOLIC [id number] 00:00:00 Test Item Value Reference Range Interpretation Comments GLUCOSE (test code = 2217) 116 MG/DL BUN (test code = 2208) 11 MG/DL CREATININE (test code = 2214) 0.92 MG/DL eGFR AMER. (test code 87 ML/MIN/1.73 = 57710) eGFR NON- AMER. (test 75 ML/MIN/1.73 code = 93795) CALC BUN/CREAT (test code = 12 RATIO 2235) SODIUM (test code = 2231) 140 MEQ/L POTASSIUM (test code = 2228) 4.1 MEQ/L CHLORIDE (test code = 2215) 104 MEQ/L CARBON DIOXIDE (test code = 25 MEQ/L 2205) CALCIUM (test code = 2209) 9.6 MG/DL PROTEIN, TOTAL (test code = 6.7 G/DL 2228) ALBUMIN (test code = 2201) 4.1 G/DL CALC GLOBULIN (test code = 2.6 G/DL 2239) CALC A/G RATIO (test code = 1.6 RATIO 2233) BILIRUBIN, TOTAL (test code = 0.8 MG/DL 2206) ALKALINE PHOSPHATASE (test 103 U/L code = 2204) AST (test code = 2218) 17 U/L ALT (test code = 2219) 21 U/L HEMOGLOBIN [id number] 00:00:00 Test Item Value Reference Range Interpretation Comments HEMOGLOBIN A1c (test code = 58388) 6.3 % HEMOGLOBIN [id number] 00:00:00 Test Item Value Reference Range Interpretation Comments HEMOGLOBIN A1c (test code = 79627) 6.3 % HEMOGLOBIN [id number] 00:00:00 Test Item Value Reference Range Interpretation Comments HEMOGLOBIN A1c (test code = 18377) 6.3 % HEMOGLOBIN [id number] 00:00:00 Test Item Value Reference Range Interpretation Comments HEMOGLOBIN A1c (test code = 81633) 6.3 % HEMOGLOBIN [id number] 00:00:00 Test Item Value Reference Range Interpretation Comments HEMOGLOBIN A1c (test code = 96974) 6.3 % COMPREHENSIVE METABOLIC [id number] 00:00:00 Test Item Value Reference Range Interpretation Comments GLUCOSE (test code = 2217) 116 MG/DL BUN (test code = 2208) 11 MG/DL CREATININE (test code = 2214) 0.92 MG/DL eGFR AMER. (test code 87 ML/MIN/1.73 = 45613) eGFR NON- AMER. (test 75 ML/MIN/1.73 code = 23421) CALC BUN/CREAT (test code = 12 RATIO 2235) SODIUM (test code = 2231) 140 MEQ/L POTASSIUM (test code = 2228) 4.1 MEQ/L CHLORIDE (test code = 2215) 104 MEQ/L CARBON DIOXIDE (test code = 25 MEQ/L 220) CALCIUM (test code = 2209) 9.6 MG/DL PROTEIN, TOTAL (test code = 6.7 G/DL 2228) ALBUMIN (test code = 2201) 4.1 G/DL CALC GLOBULIN (test code = 2.6 G/DL 2240) CALC A/G RATIO (test code = 1.6 RATIO 2234) BILIRUBIN, TOTAL (test code = 0.8 MG/DL 2206) ALKALINE PHOSPHATASE (test 103 U/L code = 2204) AST (test code = 2218) 17 U/L ALT (test code = 2219) 21 U/L COMPREHENSIVE METABOLIC [id number] 00:00:00 Test Item Value Reference Range Interpretation Comments GLUCOSE (test code = 2217) 116 MG/DL BUN (test code = 2208) 11 MG/DL CREATININE (test code = 2214) 0.92 MG/DL eGFR AMER. (test code 87 ML/MIN/1.73 = 66611) eGFR NON- AMER. (test 75 ML/MIN/1.73 code = 82364) CALC BUN/CREAT (test code = 12 RATIO 2235) SODIUM (test code = 2231) 140 MEQ/L POTASSIUM (test code = 2228) 4.1 MEQ/L CHLORIDE (test code = 2215) 104 MEQ/L CARBON DIOXIDE (test code = 25 MEQ/L 220) CALCIUM (test code = 2209) 9.6 MG/DL PROTEIN, TOTAL (test code = 6.7 G/DL 2228) ALBUMIN (test code = 2201) 4.1 G/DL CALC GLOBULIN (test code = 2.6 G/DL 2240) CALC A/G RATIO (test code = 1.6 RATIO 2234) BILIRUBIN, TOTAL (test code = 0.8 MG/DL 2206) ALKALINE PHOSPHATASE (test 103 U/L code = 2204) AST (test code = 2218) 17 U/L ALT (test code = 2219) 21 U/L HEMOGLOBIN [id number] 00:00:00 Test Item Value Reference Range Interpretation Comments HEMOGLOBIN A1c (test code = 44998) 6.3 % HEMOGLOBIN [id number] 00:00:00 Test Item Value Reference Range Interpretation Comments HEMOGLOBIN A1c (test code = 71813) 6.3 % HEMOGLOBIN [id number] 00:00:00 Test Item Value Reference Range Interpretation Comments HEMOGLOBIN A1c (test code = 84679) 6.3 % HEMOGLOBIN [id number] 00:00:00 Test Item Value Reference Range Interpretation Comments HEMOGLOBIN A1c (test code = 26849) 7.2 % HEMOGLOBIN [id number] 00:00:00 Test Item Value Reference Range Interpretation Comments HEMOGLOBIN A1c (test code = 29137) 7.2 % HEMOGLOBIN [id number] 00:00:00 Test Item Value Reference Range Interpretation Comments HEMOGLOBIN A1c (test code = 08218) 7.2 % HEMOGLOBIN [id number] 00:00:00 Test Item Value Reference Range Interpretation Comments HEMOGLOBIN A1c (test code = 73274) 7.2 % HEMOGLOBIN [id number] 00:00:00 Test Item Value Reference Range Interpretation Comments HEMOGLOBIN A1c (test code = 35603) 7.2 % HEMOGLOBIN [id number] 00:00:00 Test Item Value Reference Range Interpretation Comments HEMOGLOBIN A1c (test code = 41412) 7.2 % HEMOGLOBIN [id number] 00:00:00 Test Item Value Reference Range Interpretation Comments HEMOGLOBIN A1c (test code = 13733) 7.2 % HEMOGLOBIN [id number] 00:00:00 Test Item Value Reference Range Interpretation Comments HEMOGLOBIN A1c (test code = 64711) 7.2 % HEMOGLOBIN [id number] 00:00:00 Test Item Value Reference Range Interpretation Comments HEMOGLOBIN A1c (test code = 24931) 7.2 % HEMOGLOBIN [id number] 00:00:00 Test Item Value Reference Range Interpretation Comments HEMOGLOBIN A1c (test code = 56027) 7.2 % HEMOGLOBIN [id number] 00:00:00 Test Item Value Reference Range Interpretation Comments HEMOGLOBIN A1c (test code = 98556) 7.2 % HEMOGLOBIN [id number] 00:00:00 Test Item Value Reference Range Interpretation Comments HEMOGLOBIN A1c (test code = 48780) 7.2 % HEMOGLOBIN [id number] 00:00:00 Test Item Value Reference Range Interpretation Comments HEMOGLOBIN A1c (test code = 11465) 7.2 % HEMOGLOBIN [id number] 00:00:00 Test Item Value Reference Range Interpretation Comments HEMOGLOBIN A1c (test code = 26080) 7.2 % HEMOGLOBIN [id number] 00:00:00 Test Item Value Reference Range Interpretation Comments HEMOGLOBIN A1c (test code = 46383) 7.2 % HEMOGLOBIN [id number] 00:00:00 Test Item Value Reference Range Interpretation Comments HEMOGLOBIN A1c (test code = 17767) 7.2 % HEMOGLOBIN [id number] 00:00:00 Test Item Value Reference Range Interpretation Comments HEMOGLOBIN A1c (test code = 43581) 7.2 % HEMOGLOBIN [id number] 00:00:00 Test Item Value Reference Range Interpretation Comments HEMOGLOBIN A1c (test code = 18012) 7.2 % CBC W/AUTO [id number] 00:00:00 Test Item Value Reference Range Interpretation Comments WBC (test code = 1001) 9.7 K/UL RBC (test code = 1002) 5.63 M/UL HEMOGLOBIN (test code = 1003) 14.5 G/DL HEMATOCRIT (test code = 1004) 45.8 % MCV (test code = 1005) 81.3 fL MCH (test code = 1006) 25.8 PG MCHC (test code = 1007) 31.7 G/DL RDW (test code = 1038) 13.1 % NEUTROPHILS (test code = 1008) 67.4 % LYMPHOCYTES (test code = 1010) 22.5 % MONOCYTES (test code = 1011) 6.0 % EOSINOPHILS (test code = 1012) 2.9 % BASOPHILS (test code = 1013) 0.9 % IMMATURE GRANULOCYTES (test 0.3 % code = 1036) NUCLEATED RBCS (test code = 0.0 /100WBC'S 1065) PLATELET COUNT (test code = 243 K/UL 1015) ABSOLUTE NEUTROPHILS (test code 6.56 K/UL = 1066) ABSOLUTE LYMPHOCYTES (test code 2.19 K/UL = 1067) ABSOLUTE MONOCYTES (test code = 0.58 K/UL 1068) ABSOLUTE EOSINOPHILS (test code 0.28 K/UL = 1040) ABSOLUTE BASOPHILS (test code = 0.09 K/UL 1069) ABS IMMATURE GRANULOCYTES (test 0.03 K/UL code = 1020) ABS NUCLEATED RBCS (test code = 0.00 K/UL 26479) CBC W/AUTO [id number] 00:00:00 Test Item Value Reference Range Interpretation Comments WBC (test code = 1001) 9.7 K/UL RBC (test code = 1002) 5.63 M/UL HEMOGLOBIN (test code = 1003) 14.5 G/DL HEMATOCRIT (test code = 1004) 45.8 % MCV (test code = 1005) 81.3 fL MCH (test code = 1006) 25.8 PG MCHC (test code = 1007) 31.7 G/DL RDW (test code = 1038) 13.1 % NEUTROPHILS (test code = 1008) 67.4 % LYMPHOCYTES (test code = 1010) 22.5 % MONOCYTES (test code = 1011) 6.0 % EOSINOPHILS (test code = 1012) 2.9 % BASOPHILS (test code = 1013) 0.9 % IMMATURE GRANULOCYTES (test 0.3 % code = 1036) NUCLEATED RBCS (test code = 0.0 /100WBC'S 1065) PLATELET COUNT (test code = 243 K/UL 1015) ABSOLUTE NEUTROPHILS (test code 6.56 K/UL = 1066) ABSOLUTE LYMPHOCYTES (test code 2.19 K/UL = 1067) ABSOLUTE MONOCYTES (test code = 0.58 K/UL 1068) ABSOLUTE EOSINOPHILS (test code 0.28 K/UL = 1040) ABSOLUTE BASOPHILS (test code = 0.09 K/UL 1069) ABS IMMATURE GRANULOCYTES (test 0.03 K/UL code = 1020) ABS NUCLEATED RBCS (test code = 0.00 K/UL 10900) CBC W/AUTO [id number] 00:00:00 Test Item Value Reference Range Interpretation Comments WBC (test code = 1001) 9.7 K/UL RBC (test code = 1002) 5.63 M/UL HEMOGLOBIN (test code = 1003) 14.5 G/DL HEMATOCRIT (test code = 1004) 45.8 % MCV (test code = 1005) 81.3 fL MCH (test code = 1006) 25.8 PG MCHC (test code = 1007) 31.7 G/DL RDW (test code = 1038) 13.1 % NEUTROPHILS (test code = 1008) 67.4 % LYMPHOCYTES (test code = 1010) 22.5 % MONOCYTES (test code = 1011) 6.0 % EOSINOPHILS (test code = 1012) 2.9 % BASOPHILS (test code = 1013) 0.9 % IMMATURE GRANULOCYTES (test 0.3 % code = 1036) NUCLEATED RBCS (test code = 0.0 /100WBC'S 1065) PLATELET COUNT (test code = 243 K/UL 1015) ABSOLUTE NEUTROPHILS (test code 6.56 K/UL = 1066) ABSOLUTE LYMPHOCYTES (test code 2.19 K/UL = 1067) ABSOLUTE MONOCYTES (test code = 0.58 K/UL 1068) ABSOLUTE EOSINOPHILS (test code 0.28 K/UL = 1040) ABSOLUTE BASOPHILS (test code = 0.09 K/UL 1069) ABS IMMATURE GRANULOCYTES (test 0.03 K/UL code = 1020) ABS NUCLEATED RBCS (test code = 0.00 K/UL 77393) LIPID [id number] 00:00:00 Test Item Value Reference Range Interpretation Comments CHOLESTEROL (test code = 2210) 159 MG/DL TRIGLYCERIDES (test code = 2232) 106 MG/DL HDL CHOLESTEROL (test code = 2220) 34 MG/DL CALC LDL CHOL (test code = 2237) 105 MG/DL RISK RATIO LDL/HDL (test code = 3.09 RATIO 2238) LIPID [id number] 00:00:00 Test Item Value Reference Range Interpretation Comments CHOLESTEROL (test code = 2210) 159 MG/DL TRIGLYCERIDES (test code = 2232) 106 MG/DL HDL CHOLESTEROL (test code = 2220) 34 MG/DL CALC LDL CHOL (test code = 2237) 105 MG/DL RISK RATIO LDL/HDL (test code = 3.09 RATIO 2238) COMPREHENSIVE METABOLIC [id number] 00:00:00 Test Item Value Reference Range Interpretation Comments GLUCOSE (test code = 2217) 136 MG/DL BUN (test code = 2208) 11 MG/DL CREATININE (test code = 2214) 0.87 MG/DL eGFR AMER. (test code 93 ML/MIN/1.73 = 25872) eGFR NON- AMER. (test 80 ML/MIN/1.73 code = 27278) CALC BUN/CREAT (test code = 13 RATIO 2235) SODIUM (test code = 2231) 138 MEQ/L POTASSIUM (test code = 2228) 4.2 MEQ/L CHLORIDE (test code = 2215) 103 MEQ/L CARBON DIOXIDE (test code = 26 MEQ/L 2206) CALCIUM (test code = 2209) 9.1 MG/DL PROTEIN, TOTAL (test code = 6.8 G/DL 222) ALBUMIN (test code = 2201) 3.9 G/DL CALC GLOBULIN (test code = 2.9 G/DL 2240) CALC A/G RATIO (test code = 1.3 RATIO 2234) BILIRUBIN, TOTAL (test code = 0.5 MG/DL 2206) ALKALINE PHOSPHATASE (test 95 U/L code = 220) AST (test code = 2218) 19 U/L ALT (test code = 2219) 16 U/L COMPREHENSIVE METABOLIC [id number] 00:00:00 Test Item Value Reference Range Interpretation Comments GLUCOSE (test code = 2217) 136 MG/DL BUN (test code = 2208) 11 MG/DL CREATININE (test code = 2214) 0.87 MG/DL eGFR AMER. (test code 93 ML/MIN/1.73 = 42284) eGFR NON- AMER. (test 80 ML/MIN/1.73 code = 37889) CALC BUN/CREAT (test code = 13 RATIO 2235) SODIUM (test code = 2231) 138 MEQ/L POTASSIUM (test code = 2228) 4.2 MEQ/L CHLORIDE (test code = 2215) 103 MEQ/L CARBON DIOXIDE (test code = 26 MEQ/L 2206) CALCIUM (test code = 2209) 9.1 MG/DL PROTEIN, TOTAL (test code = 6.8 G/DL 2228) ALBUMIN (test code = 2201) 3.9 G/DL CALC GLOBULIN (test code = 2.9 G/DL 2240) CALC A/G RATIO (test code = 1.3 RATIO 2234) BILIRUBIN, TOTAL (test code = 0.5 MG/DL 2206) ALKALINE PHOSPHATASE (test 95 U/L code = 2204) AST (test code = 2218) 19 U/L ALT (test code = 2219) 16 U/L CBC W/AUTO [id number] 00:00:00 Test Item Value Reference Range Interpretation Comments WBC (test code = 1001) 9.7 K/UL RBC (test code = 1002) 5.63 M/UL HEMOGLOBIN (test code = 1003) 14.5 G/DL HEMATOCRIT (test code = 1004) 45.8 % MCV (test code = 1005) 81.3 fL MCH (test code = 1006) 25.8 PG MCHC (test code = 1007) 31.7 G/DL RDW (test code = 1038) 13.1 % NEUTROPHILS (test code = 1008) 67.4 % LYMPHOCYTES (test code = 1010) 22.5 % MONOCYTES (test code = 1011) 6.0 % EOSINOPHILS (test code = 1012) 2.9 % BASOPHILS (test code = 1013) 0.9 % IMMATURE GRANULOCYTES (test 0.3 % code = 1036) NUCLEATED RBCS (test code = 0.0 /100WBC'S 1065) PLATELET COUNT (test code = 243 K/UL 1015) ABSOLUTE NEUTROPHILS (test code 6.56 K/UL = 1066) ABSOLUTE LYMPHOCYTES (test code 2.19 K/UL = 1067) ABSOLUTE MONOCYTES (test code = 0.58 K/UL 1068) ABSOLUTE EOSINOPHILS (test code 0.28 K/UL = 1040) ABSOLUTE BASOPHILS (test code = 0.09 K/UL 1069) ABS IMMATURE GRANULOCYTES (test 0.03 K/UL code = 1020) ABS NUCLEATED RBCS (test code = 0.00 K/UL 26137) CBC W/AUTO [id number] 00:00:00 Test Item Value Reference Range Interpretation Comments WBC (test code = 1001) 9.7 K/UL RBC (test code = 1002) 5.63 M/UL HEMOGLOBIN (test code = 1003) 14.5 G/DL HEMATOCRIT (test code = 1004) 45.8 % MCV (test code = 1005) 81.3 fL MCH (test code = 1006) 25.8 PG MCHC (test code = 1007) 31.7 G/DL RDW (test code = 1038) 13.1 % NEUTROPHILS (test code = 1008) 67.4 % LYMPHOCYTES (test code = 1010) 22.5 % MONOCYTES (test code = 1011) 6.0 % EOSINOPHILS (test code = 1012) 2.9 % BASOPHILS (test code = 1013) 0.9 % IMMATURE GRANULOCYTES (test 0.3 % code = 1036) NUCLEATED RBCS (test code = 0.0 /100WBC'S 1065) PLATELET COUNT (test code = 243 K/UL 1015) ABSOLUTE NEUTROPHILS (test code 6.56 K/UL = 1066) ABSOLUTE LYMPHOCYTES (test code 2.19 K/UL = 1067) ABSOLUTE MONOCYTES (test code = 0.58 K/UL 1068) ABSOLUTE EOSINOPHILS (test code 0.28 K/UL = 1040) ABSOLUTE BASOPHILS (test code = 0.09 K/UL 1069) ABS IMMATURE GRANULOCYTES (test 0.03 K/UL code = 1020) ABS NUCLEATED RBCS (test code = 0.00 K/UL 79640) CBC W/AUTO [id number] 00:00:00 Test Item Value Reference Range Interpretation Comments WBC (test code = 1001) 9.7 K/UL RBC (test code = 1002) 5.63 M/UL HEMOGLOBIN (test code = 1003) 14.5 G/DL HEMATOCRIT (test code = 1004) 45.8 % MCV (test code = 1005) 81.3 fL MCH (test code = 1006) 25.8 PG MCHC (test code = 1007) 31.7 G/DL RDW (test code = 1038) 13.1 % NEUTROPHILS (test code = 1008) 67.4 % LYMPHOCYTES (test code = 1010) 22.5 % MONOCYTES (test code = 1011) 6.0 % EOSINOPHILS (test code = 1012) 2.9 % BASOPHILS (test code = 1013) 0.9 % IMMATURE GRANULOCYTES (test 0.3 % code = 1036) NUCLEATED RBCS (test code = 0.0 /100WBC'S 1065) PLATELET COUNT (test code = 243 K/UL 1015) ABSOLUTE NEUTROPHILS (test code 6.56 K/UL = 1066) ABSOLUTE LYMPHOCYTES (test code 2.19 K/UL = 1067) ABSOLUTE MONOCYTES (test code = 0.58 K/UL 1068) ABSOLUTE EOSINOPHILS (test code 0.28 K/UL = 1040) ABSOLUTE BASOPHILS (test code = 0.09 K/UL 1069) ABS IMMATURE GRANULOCYTES (test 0.03 K/UL code = 1020) ABS NUCLEATED RBCS (test code = 0.00 K/UL 38353) CBC W/AUTO [id number] 00:00:00 Test Item Value Reference Range Interpretation Comments WBC (test code = 1001) 9.7 K/UL RBC (test code = 1002) 5.63 M/UL HEMOGLOBIN (test code = 1003) 14.5 G/DL HEMATOCRIT (test code = 1004) 45.8 % MCV (test code = 1005) 81.3 fL MCH (test code = 1006) 25.8 PG MCHC (test code = 1007) 31.7 G/DL RDW (test code = 1038) 13.1 % NEUTROPHILS (test code = 1008) 67.4 % LYMPHOCYTES (test code = 1010) 22.5 % MONOCYTES (test code = 1011) 6.0 % EOSINOPHILS (test code = 1012) 2.9 % BASOPHILS (test code = 1013) 0.9 % IMMATURE GRANULOCYTES (test 0.3 % code = 1036) NUCLEATED RBCS (test code = 0.0 /100WBC'S 1065) PLATELET COUNT (test code = 243 K/UL 1015) ABSOLUTE NEUTROPHILS (test code 6.56 K/UL = 1066) ABSOLUTE LYMPHOCYTES (test code 2.19 K/UL = 1067) ABSOLUTE MONOCYTES (test code = 0.58 K/UL 1068) ABSOLUTE EOSINOPHILS (test code 0.28 K/UL = 1040) ABSOLUTE BASOPHILS (test code = 0.09 K/UL 1069) ABS IMMATURE GRANULOCYTES (test 0.03 K/UL code = 1020) ABS NUCLEATED RBCS (test code = 0.00 K/UL 67819) LIPID [id number] 00:00:00 Test Item Value Reference Range Interpretation Comments CHOLESTEROL (test code = 2210) 159 MG/DL TRIGLYCERIDES (test code = 2232) 106 MG/DL HDL CHOLESTEROL (test code = 2220) 34 MG/DL CALC LDL CHOL (test code = 2237) 105 MG/DL RISK RATIO LDL/HDL (test code = 3.09 RATIO 2238) LIPID [id number] 00:00:00 Test Item Value Reference Range Interpretation Comments CHOLESTEROL (test code = 2210) 159 MG/DL TRIGLYCERIDES (test code = 2232) 106 MG/DL HDL CHOLESTEROL (test code = 2220) 34 MG/DL CALC LDL CHOL (test code = 2237) 105 MG/DL RISK RATIO LDL/HDL (test code = 3.09 RATIO 2238) COMPREHENSIVE METABOLIC [id number] 00:00:00 Test Item Value Reference Range Interpretation Comments GLUCOSE (test code = 2217) 136 MG/DL BUN (test code = 2208) 11 MG/DL CREATININE (test code = 2214) 0.87 MG/DL eGFR AMER. (test code 93 ML/MIN/1.73 = 95810) eGFR NON- AMER. (test 80 ML/MIN/1.73 code = 22051) CALC BUN/CREAT (test code = 13 RATIO 2235) SODIUM (test code = 2231) 138 MEQ/L POTASSIUM (test code = 2228) 4.2 MEQ/L CHLORIDE (test code = 2215) 103 MEQ/L CARBON DIOXIDE (test code = 26 MEQ/L 2205) CALCIUM (test code = 2209) 9.1 MG/DL PROTEIN, TOTAL (test code = 6.8 G/DL 2228) ALBUMIN (test code = 2201) 3.9 G/DL CALC GLOBULIN (test code = 2.9 G/DL 2240) CALC A/G RATIO (test code = 1.3 RATIO 2234) BILIRUBIN, TOTAL (test code = 0.5 MG/DL 2206) ALKALINE PHOSPHATASE (test 95 U/L code = 2204) AST (test code = 2218) 19 U/L ALT (test code = 2219) 16 U/L COMPREHENSIVE METABOLIC [id number] 00:00:00 Test Item Value Reference Range Interpretation Comments GLUCOSE (test code = 2217) 136 MG/DL BUN (test code = 2208) 11 MG/DL CREATININE (test code = 2214) 0.87 MG/DL eGFR AMER. (test code 93 ML/MIN/1.73 = 49809) eGFR NON- AMER. (test 80 ML/MIN/1.73 code = 01319) CALC BUN/CREAT (test code = 13 RATIO 2235) SODIUM (test code = 2231) 138 MEQ/L POTASSIUM (test code = 2228) 4.2 MEQ/L CHLORIDE (test code = 2215) 103 MEQ/L CARBON DIOXIDE (test code = 26 MEQ/L 220) CALCIUM (test code = 2209) 9.1 MG/DL PROTEIN, TOTAL (test code = 6.8 G/DL 2229) ALBUMIN (test code = 2201) 3.9 G/DL CALC GLOBULIN (test code = 2.9 G/DL 2240) CALC A/G RATIO (test code = 1.3 RATIO 2234) BILIRUBIN, TOTAL (test code = 0.5 MG/DL 2207) ALKALINE PHOSPHATASE (test 95 U/L code = 2204) AST (test code = 2218) 19 U/L ALT (test code = 2219) 16 U/L CBC W/AUTO [id number] 00:00:00 Test Item Value Reference Range Interpretation Comments WBC (test code = 1001) 9.7 K/UL RBC (test code = 1002) 5.63 M/UL HEMOGLOBIN (test code = 1003) 14.5 G/DL HEMATOCRIT (test code = 1004) 45.8 % MCV (test code = 1005) 81.3 fL MCH (test code = 1006) 25.8 PG MCHC (test code = 1007) 31.7 G/DL RDW (test code = 1038) 13.1 % NEUTROPHILS (test code = 1008) 67.4 % LYMPHOCYTES (test code = 1010) 22.5 % MONOCYTES (test code = 1011) 6.0 % EOSINOPHILS (test code = 1012) 2.9 % BASOPHILS (test code = 1013) 0.9 % IMMATURE GRANULOCYTES (test 0.3 % code = 1036) NUCLEATED RBCS (test code = 0.0 /100WBC'S 1065) PLATELET COUNT (test code = 243 K/UL 1015) ABSOLUTE NEUTROPHILS (test code 6.56 K/UL = 1066) ABSOLUTE LYMPHOCYTES (test code 2.19 K/UL = 1067) ABSOLUTE MONOCYTES (test code = 0.58 K/UL 1068) ABSOLUTE EOSINOPHILS (test code 0.28 K/UL = 1040) ABSOLUTE BASOPHILS (test code = 0.09 K/UL 1069) ABS IMMATURE GRANULOCYTES (test 0.03 K/UL code = 1020) ABS NUCLEATED RBCS (test code = 0.00 K/UL 08886) CBC W/AUTO [id number] 00:00:00 Test Item Value Reference Range Interpretation Comments WBC (test code = 1001) 9.7 K/UL RBC (test code = 1002) 5.63 M/UL HEMOGLOBIN (test code = 1003) 14.5 G/DL HEMATOCRIT (test code = 1004) 45.8 % MCV (test code = 1005) 81.3 fL MCH (test code = 1006) 25.8 PG MCHC (test code = 1007) 31.7 G/DL RDW (test code = 1038) 13.1 % NEUTROPHILS (test code = 1008) 67.4 % LYMPHOCYTES (test code = 1010) 22.5 % MONOCYTES (test code = 1011) 6.0 % EOSINOPHILS (test code = 1012) 2.9 % BASOPHILS (test code = 1013) 0.9 % IMMATURE GRANULOCYTES (test 0.3 % code = 1036) NUCLEATED RBCS (test code = 0.0 /100WBC'S 1065) PLATELET COUNT (test code = 243 K/UL 1015) ABSOLUTE NEUTROPHILS (test code 6.56 K/UL = 1066) ABSOLUTE LYMPHOCYTES (test code 2.19 K/UL = 1067) ABSOLUTE MONOCYTES (test code = 0.58 K/UL 1068) ABSOLUTE EOSINOPHILS (test code 0.28 K/UL = 1040) ABSOLUTE BASOPHILS (test code = 0.09 K/UL 1069) ABS IMMATURE GRANULOCYTES (test 0.03 K/UL code = 1020) ABS NUCLEATED RBCS (test code = 0.00 K/UL 14072) CBC W/AUTO [id number] 00:00:00 Test Item Value Reference Range Interpretation Comments WBC (test code = 1001) 9.7 K/UL RBC (test code = 1002) 5.63 M/UL HEMOGLOBIN (test code = 1003) 14.5 G/DL HEMATOCRIT (test code = 1004) 45.8 % MCV (test code = 1005) 81.3 fL MCH (test code = 1006) 25.8 PG MCHC (test code = 1007) 31.7 G/DL RDW (test code = 1038) 13.1 % NEUTROPHILS (test code = 1008) 67.4 % LYMPHOCYTES (test code = 1010) 22.5 % MONOCYTES (test code = 1011) 6.0 % EOSINOPHILS (test code = 1012) 2.9 % BASOPHILS (test code = 1013) 0.9 % IMMATURE GRANULOCYTES (test 0.3 % code = 1036) NUCLEATED RBCS (test code = 0.0 /100WBC'S 1065) PLATELET COUNT (test code = 243 K/UL 1015) ABSOLUTE NEUTROPHILS (test code 6.56 K/UL = 1066) ABSOLUTE LYMPHOCYTES (test code 2.19 K/UL = 1067) ABSOLUTE MONOCYTES (test code = 0.58 K/UL 1068) ABSOLUTE EOSINOPHILS (test code 0.28 K/UL = 1040) ABSOLUTE BASOPHILS (test code = 0.09 K/UL 1069) ABS IMMATURE GRANULOCYTES (test 0.03 K/UL code = 1020) ABS NUCLEATED RBCS (test code = 0.00 K/UL 22566) CBC W/AUTO [id number] 00:00:00 Test Item Value Reference Range Interpretation Comments WBC (test code = 1001) 9.7 K/UL RBC (test code = 1002) 5.63 M/UL HEMOGLOBIN (test code = 1003) 14.5 G/DL HEMATOCRIT (test code = 1004) 45.8 % MCV (test code = 1005) 81.3 fL MCH (test code = 1006) 25.8 PG MCHC (test code = 1007) 31.7 G/DL RDW (test code = 1038) 13.1 % NEUTROPHILS (test code = 1008) 67.4 % LYMPHOCYTES (test code = 1010) 22.5 % MONOCYTES (test code = 1011) 6.0 % EOSINOPHILS (test code = 1012) 2.9 % BASOPHILS (test code = 1013) 0.9 % IMMATURE GRANULOCYTES (test 0.3 % code = 1036) NUCLEATED RBCS (test code = 0.0 /100WBC'S 1065) PLATELET COUNT (test code = 243 K/UL 1015) ABSOLUTE NEUTROPHILS (test code 6.56 K/UL = 1066) ABSOLUTE LYMPHOCYTES (test code 2.19 K/UL = 1067) ABSOLUTE MONOCYTES (test code = 0.58 K/UL 1068) ABSOLUTE EOSINOPHILS (test code 0.28 K/UL = 1040) ABSOLUTE BASOPHILS (test code = 0.09 K/UL 1069) ABS IMMATURE GRANULOCYTES (test 0.03 K/UL code = 1020) ABS NUCLEATED RBCS (test code = 0.00 K/UL 92279) CBC W/AUTO [id number] 00:00:00 Test Item Value Reference Range Interpretation Comments WBC (test code = 1001) 9.7 K/UL RBC (test code = 1002) 5.63 M/UL HEMOGLOBIN (test code = 1003) 14.5 G/DL HEMATOCRIT (test code = 1004) 45.8 % MCV (test code = 1005) 81.3 fL MCH (test code = 1006) 25.8 PG MCHC (test code = 1007) 31.7 G/DL RDW (test code = 1038) 13.1 % NEUTROPHILS (test code = 1008) 67.4 % LYMPHOCYTES (test code = 1010) 22.5 % MONOCYTES (test code = 1011) 6.0 % EOSINOPHILS (test code = 1012) 2.9 % BASOPHILS (test code = 1013) 0.9 % IMMATURE GRANULOCYTES (test 0.3 % code = 1036) NUCLEATED RBCS (test code = 0.0 /100WBC'S 1065) PLATELET COUNT (test code = 243 K/UL 1015) ABSOLUTE NEUTROPHILS (test code 6.56 K/UL = 1066) ABSOLUTE LYMPHOCYTES (test code 2.19 K/UL = 1067) ABSOLUTE MONOCYTES (test code = 0.58 K/UL 1068) ABSOLUTE EOSINOPHILS (test code 0.28 K/UL = 1040) ABSOLUTE BASOPHILS (test code = 0.09 K/UL 1069) ABS IMMATURE GRANULOCYTES (test 0.03 K/UL code = 1020) ABS NUCLEATED RBCS (test code = 0.00 K/UL 53312) LIPID [id number] 00:00:00 Test Item Value Reference Range Interpretation Comments CHOLESTEROL (test code = 2210) 159 MG/DL TRIGLYCERIDES (test code = 2232) 106 MG/DL HDL CHOLESTEROL (test code = 2220) 34 MG/DL CALC LDL CHOL (test code = 2237) 105 MG/DL RISK RATIO LDL/HDL (test code = 3.09 RATIO 2238) LIPID [id number] 00:00:00 Test Item Value Reference Range Interpretation Comments CHOLESTEROL (test code = 2210) 159 MG/DL TRIGLYCERIDES (test code = 2232) 106 MG/DL HDL CHOLESTEROL (test code = 2220) 34 MG/DL CALC LDL CHOL (test code = 2237) 105 MG/DL RISK RATIO LDL/HDL (test code = 3.09 RATIO 2238) COMPREHENSIVE METABOLIC [id number] 00:00:00 Test Item Value Reference Range Interpretation Comments GLUCOSE (test code = 2217) 136 MG/DL BUN (test code = 2208) 11 MG/DL CREATININE (test code = 2214) 0.87 MG/DL eGFR AMER. (test code 93 ML/MIN/1.73 = 15422) eGFR NON- AMER. (test 80 ML/MIN/1.73 code = 41026) CALC BUN/CREAT (test code = 13 RATIO 2235) SODIUM (test code = 2231) 138 MEQ/L POTASSIUM (test code = 2228) 4.2 MEQ/L CHLORIDE (test code = 2215) 103 MEQ/L CARBON DIOXIDE (test code = 26 MEQ/L 220) CALCIUM (test code = 2209) 9.1 MG/DL PROTEIN, TOTAL (test code = 6.8 G/DL 2228) ALBUMIN (test code = 2201) 3.9 G/DL CALC GLOBULIN (test code = 2.9 G/DL 2240) CALC A/G RATIO (test code = 1.3 RATIO 2234) BILIRUBIN, TOTAL (test code = 0.5 MG/DL 2206) ALKALINE PHOSPHATASE (test 95 U/L code = 2204) AST (test code = 2218) 19 U/L ALT (test code = 2219) 16 U/L COMPREHENSIVE METABOLIC [id number] 00:00:00 Test Item Value Reference Range Interpretation Comments GLUCOSE (test code = 2217) 136 MG/DL BUN (test code = 2208) 11 MG/DL CREATININE (test code = 2214) 0.87 MG/DL eGFR AMER. (test code 93 ML/MIN/1.73 = 23126) eGFR NON- AMER. (test 80 ML/MIN/1.73 code = 85329) CALC BUN/CREAT (test code = 13 RATIO 2235) SODIUM (test code = 2231) 138 MEQ/L POTASSIUM (test code = 2228) 4.2 MEQ/L CHLORIDE (test code = 2215) 103 MEQ/L CARBON DIOXIDE (test code = 26 MEQ/L 2206) CALCIUM (test code = 2209) 9.1 MG/DL PROTEIN, TOTAL (test code = 6.8 G/DL 2228) ALBUMIN (test code = 2201) 3.9 G/DL CALC GLOBULIN (test code = 2.9 G/DL 2240) CALC A/G RATIO (test code = 1.3 RATIO 2234) BILIRUBIN, TOTAL (test code = 0.5 MG/DL 2207) ALKALINE PHOSPHATASE (test 95 U/L code = 2204) AST (test code = 2218) 19 U/L ALT (test code = 2219) 16 U/L CBC W/AUTO [id number] 00:00:00 Test Item Value Reference Range Interpretation Comments WBC (test code = 1001) 9.7 K/UL RBC (test code = 1002) 5.63 M/UL HEMOGLOBIN (test code = 1003) 14.5 G/DL HEMATOCRIT (test code = 1004) 45.8 % MCV (test code = 1005) 81.3 fL MCH (test code = 1006) 25.8 PG MCHC (test code = 1007) 31.7 G/DL RDW (test code = 1038) 13.1 % NEUTROPHILS (test code = 1008) 67.4 % LYMPHOCYTES (test code = 1010) 22.5 % MONOCYTES (test code = 1011) 6.0 % EOSINOPHILS (test code = 1012) 2.9 % BASOPHILS (test code = 1013) 0.9 % IMMATURE GRANULOCYTES (test 0.3 % code = 1036) NUCLEATED RBCS (test code = 0.0 /100WBC'S 1065) PLATELET COUNT (test code = 243 K/UL 1015) ABSOLUTE NEUTROPHILS (test code 6.56 K/UL = 1066) ABSOLUTE LYMPHOCYTES (test code 2.19 K/UL = 1067) ABSOLUTE MONOCYTES (test code = 0.58 K/UL 1068) ABSOLUTE EOSINOPHILS (test code 0.28 K/UL = 1040) ABSOLUTE BASOPHILS (test code = 0.09 K/UL 1069) ABS IMMATURE GRANULOCYTES (test 0.03 K/UL code = 1020) ABS NUCLEATED RBCS (test code = 0.00 K/UL 18211) CBC W/AUTO [id number] 00:00:00 Test Item Value Reference Range Interpretation Comments WBC (test code = 1001) 9.7 K/UL RBC (test code = 1002) 5.63 M/UL HEMOGLOBIN (test code = 1003) 14.5 G/DL HEMATOCRIT (test code = 1004) 45.8 % MCV (test code = 1005) 81.3 fL MCH (test code = 1006) 25.8 PG MCHC (test code = 1007) 31.7 G/DL RDW (test code = 1038) 13.1 % NEUTROPHILS (test code = 1008) 67.4 % LYMPHOCYTES (test code = 1010) 22.5 % MONOCYTES (test code = 1011) 6.0 % EOSINOPHILS (test code = 1012) 2.9 % BASOPHILS (test code = 1013) 0.9 % IMMATURE GRANULOCYTES (test 0.3 % code = 1036) NUCLEATED RBCS (test code = 0.0 /100WBC'S 1065) PLATELET COUNT (test code = 243 K/UL 1015) ABSOLUTE NEUTROPHILS (test code 6.56 K/UL = 1066) ABSOLUTE LYMPHOCYTES (test code 2.19 K/UL = 1067) ABSOLUTE MONOCYTES (test code = 0.58 K/UL 1068) ABSOLUTE EOSINOPHILS (test code 0.28 K/UL = 1040) ABSOLUTE BASOPHILS (test code = 0.09 K/UL 1069) ABS IMMATURE GRANULOCYTES (test 0.03 K/UL code = 1020) ABS NUCLEATED RBCS (test code = 0.00 K/UL 73121) CBC W/AUTO [id number] 00:00:00 Test Item Value Reference Range Interpretation Comments WBC (test code = 1001) 9.7 K/UL RBC (test code = 1002) 5.63 M/UL HEMOGLOBIN (test code = 1003) 14.5 G/DL HEMATOCRIT (test code = 1004) 45.8 % MCV (test code = 1005) 81.3 fL MCH (test code = 1006) 25.8 PG MCHC (test code = 1007) 31.7 G/DL RDW (test code = 1038) 13.1 % NEUTROPHILS (test code = 1008) 67.4 % LYMPHOCYTES (test code = 1010) 22.5 % MONOCYTES (test code = 1011) 6.0 % EOSINOPHILS (test code = 1012) 2.9 % BASOPHILS (test code = 1013) 0.9 % IMMATURE GRANULOCYTES (test 0.3 % code = 1036) NUCLEATED RBCS (test code = 0.0 /100WBC'S 1065) PLATELET COUNT (test code = 243 K/UL 1015) ABSOLUTE NEUTROPHILS (test code 6.56 K/UL = 1066) ABSOLUTE LYMPHOCYTES (test code 2.19 K/UL = 1067) ABSOLUTE MONOCYTES (test code = 0.58 K/UL 1068) ABSOLUTE EOSINOPHILS (test code 0.28 K/UL = 1040) ABSOLUTE BASOPHILS (test code = 0.09 K/UL 1069) ABS IMMATURE GRANULOCYTES (test 0.03 K/UL code = 1020) ABS NUCLEATED RBCS (test code = 0.00 K/UL 20052) LIPID [id number] 00:00:00 Test Item Value Reference Range Interpretation Comments CHOLESTEROL (test code = 2210) 159 MG/DL TRIGLYCERIDES (test code = 2232) 106 MG/DL HDL CHOLESTEROL (test code = 2220) 34 MG/DL CALC LDL CHOL (test code = 2237) 105 MG/DL RISK RATIO LDL/HDL (test code = 3.09 RATIO 2238) LIPID [id number] 00:00:00 Test Item Value Reference Range Interpretation Comments CHOLESTEROL (test code = 2210) 159 MG/DL TRIGLYCERIDES (test code = 2232) 106 MG/DL HDL CHOLESTEROL (test code = 2220) 34 MG/DL CALC LDL CHOL (test code = 2237) 105 MG/DL RISK RATIO LDL/HDL (test code = 3.09 RATIO 2238) COMPREHENSIVE METABOLIC [id number] 00:00:00 Test Item Value Reference Range Interpretation Comments GLUCOSE (test code = 2217) 136 MG/DL BUN (test code = 2208) 11 MG/DL CREATININE (test code = 2214) 0.87 MG/DL eGFR AMER. (test code 93 ML/MIN/1.73 = 88181) eGFR NON- AMER. (test 80 ML/MIN/1.73 code = 33534) CALC BUN/CREAT (test code = 13 RATIO 2235) SODIUM (test code = 2231) 138 MEQ/L POTASSIUM (test code = 2228) 4.2 MEQ/L CHLORIDE (test code = 2215) 103 MEQ/L CARBON DIOXIDE (test code = 26 MEQ/L 2205) CALCIUM (test code = 2209) 9.1 MG/DL PROTEIN, TOTAL (test code = 6.8 G/DL 2228) ALBUMIN (test code = 2201) 3.9 G/DL CALC GLOBULIN (test code = 2.9 G/DL 2240) CALC A/G RATIO (test code = 1.3 RATIO 2234) BILIRUBIN, TOTAL (test code = 0.5 MG/DL 2207) ALKALINE PHOSPHATASE (test 95 U/L code = 2204) AST (test code = 2218) 19 U/L ALT (test code = 2219) 16 U/L COMPREHENSIVE METABOLIC [id number] 00:00:00 Test Item Value Reference Range Interpretation Comments GLUCOSE (test code = 2217) 136 MG/DL BUN (test code = 2208) 11 MG/DL CREATININE (test code = 2214) 0.87 MG/DL eGFR AMER. (test code 93 ML/MIN/1.73 = 47196) eGFR NON- AMER. (test 80 ML/MIN/1.73 code = 46797) CALC BUN/CREAT (test code = 13 RATIO 2235) SODIUM (test code = 2231) 138 MEQ/L POTASSIUM (test code = 2228) 4.2 MEQ/L CHLORIDE (test code = 2215) 103 MEQ/L CARBON DIOXIDE (test code = 26 MEQ/L 2205) CALCIUM (test code = 2209) 9.1 MG/DL PROTEIN, TOTAL (test code = 6.8 G/DL 2228) ALBUMIN (test code = 2201) 3.9 G/DL CALC GLOBULIN (test code = 2.9 G/DL 2240) CALC A/G RATIO (test code = 1.3 RATIO 4) BILIRUBIN, TOTAL (test code = 0.5 MG/DL 2206) ALKALINE PHOSPHATASE (test 95 U/L code = 2204) AST (test code = 2218) 19 U/L ALT (test code = 2219) 16 U/L LIPID [id number] 00:00:00 Test Item Value Reference Range Interpretation Comments CHOLESTEROL (test code = 2210) 159 MG/DL TRIGLYCERIDES (test code = 2232) 106 MG/DL HDL CHOLESTEROL (test code = 2220) 34 MG/DL CALC LDL CHOL (test code = 2237) 105 MG/DL RISK RATIO LDL/HDL (test code = 3.09 RATIO 2238) CBC W/AUTO [id number] 00:00:00 Test Item Value Reference Range Interpretation Comments WBC (test code = 1001) 9.7 K/UL RBC (test code = 1002) 5.63 M/UL HEMOGLOBIN (test code = 1003) 14.5 G/DL HEMATOCRIT (test code = 1004) 45.8 % MCV (test code = 1005) 81.3 fL MCH (test code = 1006) 25.8 PG MCHC (test code = 1007) 31.7 G/DL RDW (test code = 1038) 13.1 % NEUTROPHILS (test code = 1008) 67.4 % LYMPHOCYTES (test code = 1010) 22.5 % MONOCYTES (test code = 1011) 6.0 % EOSINOPHILS (test code = 1012) 2.9 % BASOPHILS (test code = 1013) 0.9 % IMMATURE GRANULOCYTES (test 0.3 % code = 1036) NUCLEATED RBCS (test code = 0.0 /100WBC'S 1065) PLATELET COUNT (test code = 243 K/UL 1015) ABSOLUTE NEUTROPHILS (test code 6.56 K/UL = 1066) ABSOLUTE LYMPHOCYTES (test code 2.19 K/UL = 1067) ABSOLUTE MONOCYTES (test code = 0.58 K/UL 1068) ABSOLUTE EOSINOPHILS (test code 0.28 K/UL = 1040) ABSOLUTE BASOPHILS (test code = 0.09 K/UL 1069) ABS IMMATURE GRANULOCYTES (test 0.03 K/UL code = 1020) ABS NUCLEATED RBCS (test code = 0.00 K/UL 57132) CBC W/AUTO [id number] 00:00:00 Test Item Value Reference Range Interpretation Comments WBC (test code = 1001) 9.7 K/UL RBC (test code = 1002) 5.63 M/UL HEMOGLOBIN (test code = 1003) 14.5 G/DL HEMATOCRIT (test code = 1004) 45.8 % MCV (test code = 1005) 81.3 fL MCH (test code = 1006) 25.8 PG MCHC (test code = 1007) 31.7 G/DL RDW (test code = 1038) 13.1 % NEUTROPHILS (test code = 1008) 67.4 % LYMPHOCYTES (test code = 1010) 22.5 % MONOCYTES (test code = 1011) 6.0 % EOSINOPHILS (test code = 1012) 2.9 % BASOPHILS (test code = 1013) 0.9 % IMMATURE GRANULOCYTES (test 0.3 % code = 1036) NUCLEATED RBCS (test code = 0.0 /100WBC'S 1065) PLATELET COUNT (test code = 243 K/UL 1015) ABSOLUTE NEUTROPHILS (test code 6.56 K/UL = 1066) ABSOLUTE LYMPHOCYTES (test code 2.19 K/UL = 1067) ABSOLUTE MONOCYTES (test code = 0.58 K/UL 1068) ABSOLUTE EOSINOPHILS (test code 0.28 K/UL = 1040) ABSOLUTE BASOPHILS (test code = 0.09 K/UL 1069) ABS IMMATURE GRANULOCYTES (test 0.03 K/UL code = 1020) ABS NUCLEATED RBCS (test code = 0.00 K/UL 10231) CBC W/AUTO [id number] 00:00:00 Test Item Value Reference Range Interpretation Comments WBC (test code = 1001) 9.7 K/UL RBC (test code = 1002) 5.63 M/UL HEMOGLOBIN (test code = 1003) 14.5 G/DL HEMATOCRIT (test code = 1004) 45.8 % MCV (test code = 1005) 81.3 fL MCH (test code = 1006) 25.8 PG MCHC (test code = 1007) 31.7 G/DL RDW (test code = 1038) 13.1 % NEUTROPHILS (test code = 1008) 67.4 % LYMPHOCYTES (test code = 1010) 22.5 % MONOCYTES (test code = 1011) 6.0 % EOSINOPHILS (test code = 1012) 2.9 % BASOPHILS (test code = 1013) 0.9 % IMMATURE GRANULOCYTES (test 0.3 % code = 1036) NUCLEATED RBCS (test code = 0.0 /100WBC'S 1065) PLATELET COUNT (test code = 243 K/UL 1015) ABSOLUTE NEUTROPHILS (test code 6.56 K/UL = 1066) ABSOLUTE LYMPHOCYTES (test code 2.19 K/UL = 1067) ABSOLUTE MONOCYTES (test code = 0.58 K/UL 1068) ABSOLUTE EOSINOPHILS (test code 0.28 K/UL = 1040) ABSOLUTE BASOPHILS (test code = 0.09 K/UL 1069) ABS IMMATURE GRANULOCYTES (test 0.03 K/UL code = 1020) ABS NUCLEATED RBCS (test code = 0.00 K/UL 00119) LIPID [id number] 00:00:00 Test Item Value Reference Range Interpretation Comments CHOLESTEROL (test code = 2210) 159 MG/DL TRIGLYCERIDES (test code = 2232) 106 MG/DL HDL CHOLESTEROL (test code = 2220) 34 MG/DL CALC LDL CHOL (test code = 2237) 105 MG/DL RISK RATIO LDL/HDL (test code = 3.09 RATIO 2238) LIPID [id number] 00:00:00 Test Item Value Reference Range Interpretation Comments CHOLESTEROL (test code = 2210) 159 MG/DL TRIGLYCERIDES (test code = 2232) 106 MG/DL HDL CHOLESTEROL (test code = 2220) 34 MG/DL CALC LDL CHOL (test code = 2237) 105 MG/DL RISK RATIO LDL/HDL (test code = 3.09 RATIO 2238) LIPID [id number] 00:00:00 Test Item Value Reference Range Interpretation Comments CHOLESTEROL (test code = 2210) 159 MG/DL TRIGLYCERIDES (test code = 2232) 106 MG/DL HDL CHOLESTEROL (test code = 2220) 34 MG/DL CALC LDL CHOL (test code = 2237) 105 MG/DL RISK RATIO LDL/HDL (test code = 3.09 RATIO 2238) COMPREHENSIVE METABOLIC [id number] 00:00:00 Test Item Value Reference Range Interpretation Comments GLUCOSE (test code = 2217) 136 MG/DL BUN (test code = 2208) 11 MG/DL CREATININE (test code = 2214) 0.87 MG/DL eGFR AMER. (test code 93 ML/MIN/1.73 = 47041) eGFR NON- AMER. (test 80 ML/MIN/1.73 code = 46806) CALC BUN/CREAT (test code = 13 RATIO 2235) SODIUM (test code = 2231) 138 MEQ/L POTASSIUM (test code = 2228) 4.2 MEQ/L CHLORIDE (test code = 2215) 103 MEQ/L CARBON DIOXIDE (test code = 26 MEQ/L 2205) CALCIUM (test code = 2209) 9.1 MG/DL PROTEIN, TOTAL (test code = 6.8 G/DL 2228) ALBUMIN (test code = 2201) 3.9 G/DL CALC GLOBULIN (test code = 2.9 G/DL 2240) CALC A/G RATIO (test code = 1.3 RATIO 2234) BILIRUBIN, TOTAL (test code = 0.5 MG/DL 2206) ALKALINE PHOSPHATASE (test 95 U/L code = 2204) AST (test code = 2218) 19 U/L ALT (test code = 2219) 16 U/L COMPREHENSIVE METABOLIC [id number] 00:00:00 Test Item Value Reference Range Interpretation Comments GLUCOSE (test code = 2217) 136 MG/DL BUN (test code = 2208) 11 MG/DL CREATININE (test code = 2214) 0.87 MG/DL eGFR AMER. (test code 93 ML/MIN/1.73 = 51439) eGFR NON- AMER. (test 80 ML/MIN/1.73 code = 48575) CALC BUN/CREAT (test code = 13 RATIO 2235) SODIUM (test code = 2231) 138 MEQ/L POTASSIUM (test code = 2228) 4.2 MEQ/L CHLORIDE (test code = 2215) 103 MEQ/L CARBON DIOXIDE (test code = 26 MEQ/L 220) CALCIUM (test code = 2209) 9.1 MG/DL PROTEIN, TOTAL (test code = 6.8 G/DL 2228) ALBUMIN (test code = 2201) 3.9 G/DL CALC GLOBULIN (test code = 2.9 G/DL 2240) CALC A/G RATIO (test code = 1.3 RATIO 2233) BILIRUBIN, TOTAL (test code = 0.5 MG/DL 2206) ALKALINE PHOSPHATASE (test 95 U/L code = 2204) AST (test code = 2218) 19 U/L ALT (test code = 2219) 16 U/L COMPREHENSIVE METABOLIC [id number] 00:00:00 Test Item Value Reference Range Interpretation Comments GLUCOSE (test code = 2217) 136 MG/DL BUN (test code = 2208) 11 MG/DL CREATININE (test code = 2214) 0.87 MG/DL eGFR AMER. (test code 93 ML/MIN/1.73 = 95112) eGFR NON- AMER. (test 80 ML/MIN/1.73 code = 40724) CALC BUN/CREAT (test code = 13 RATIO 2235) SODIUM (test code = 2231) 138 MEQ/L POTASSIUM (test code = 2228) 4.2 MEQ/L CHLORIDE (test code = 2215) 103 MEQ/L CARBON DIOXIDE (test code = 26 MEQ/L 2206) CALCIUM (test code = 2209) 9.1 MG/DL PROTEIN, TOTAL (test code = 6.8 G/DL 2228) ALBUMIN (test code = 2201) 3.9 G/DL CALC GLOBULIN (test code = 2.9 G/DL 2240) CALC A/G RATIO (test code = 1.3 RATIO 2234) BILIRUBIN, TOTAL (test code = 0.5 MG/DL 220) ALKALINE PHOSPHATASE (test 95 U/L code = 2204) AST (test code = 2218) 19 U/L ALT (test code = 2219) 16 U/L COMPREHENSIVE METABOLIC [id number] 00:00:00 Test Item Value Reference Range Interpretation Comments GLUCOSE (test code = 2217) 136 MG/DL BUN (test code = 2208) 11 MG/DL CREATININE (test code = 2214) 0.87 MG/DL eGFR AMER. (test code 93 ML/MIN/1.73 = 97916) eGFR NON- AMER. (test 80 ML/MIN/1.73 code = 56924) CALC BUN/CREAT (test code = 13 RATIO 2235) SODIUM (test code = 2231) 138 MEQ/L POTASSIUM (test code = 2228) 4.2 MEQ/L CHLORIDE (test code = 2215) 103 MEQ/L CARBON DIOXIDE (test code = 26 MEQ/L 2205) CALCIUM (test code = 2209) 9.1 MG/DL PROTEIN, TOTAL (test code = 6.8 G/DL 2229) ALBUMIN (test code = 2201) 3.9 G/DL CALC GLOBULIN (test code = 2.9 G/DL 2240) CALC A/G RATIO (test code = 1.3 RATIO 2234) BILIRUBIN, TOTAL (test code = 0.5 MG/DL 2207) ALKALINE PHOSPHATASE (test 95 U/L code = 2204) AST (test code = 2218) 19 U/L ALT (test code = 2219) 16 U/L TEST, [id number] 00:00:00 Test Item Value Reference Range Interpretation Comments HCG, QUALITATIVE (test code = 2507) NEGATIVE TEST, [id number] 00:00:00 Test Item Value Reference Range Interpretation Comments HCG, QUALITATIVE (test code = 2507) NEGATIVE TEST, [id number] 00:00:00 Test Item Value Reference Range Interpretation Comments HCG, QUALITATIVE (test code = 2507) NEGATIVE BETA-HCG TUMOR [id number] 00:00:00 Test Item Value Reference Range Interpretation Comments TROPHOBLASTIC HCG (test code = <0.6 MIU/ML 66161) BETA-HCG TUMOR [id number] 00:00:00 Test Item Value Reference Range Interpretation Comments TROPHOBLASTIC HCG (test code = <0.6 MIU/ML 67980) BETA-HCG TUMOR [id number] 00:00:00 Test Item Value Reference Range Interpretation Comments TROPHOBLASTIC HCG (test code = <0.6 MIU/ML 59439) TEST, [id number] 00:00:00 Test Item Value Reference Range Interpretation Comments HCG, QUALITATIVE (test code = 2507) NEGATIVE TEST, [id number] 00:00:00 Test Item Value Reference Range Interpretation Comments HCG, QUALITATIVE (test code = 2507) NEGATIVE TEST, [id number] 00:00:00 Test Item Value Reference Range Interpretation Comments HCG, QUALITATIVE (test code = 2507) NEGATIVE BETA-HCG TUMOR [id number] 00:00:00 Test Item Value Reference Range Interpretation Comments TROPHOBLASTIC HCG (test code = <0.6 MIU/ML 84033) BETA-HCG TUMOR [id number] 00:00:00 Test Item Value Reference Range Interpretation Comments TROPHOBLASTIC HCG (test code = <0.6 MIU/ML 57189) BETA-HCG TUMOR [id number] 00:00:00 Test Item Value Reference Range Interpretation Comments TROPHOBLASTIC HCG (test code = <0.6 MIU/ML 18003) TEST, [id number] 00:00:00 Test Item Value Reference Range Interpretation Comments HCG, QUALITATIVE (test code = 2507) NEGATIVE TEST, [id number] 00:00:00 Test Item Value Reference Range Interpretation Comments HCG, QUALITATIVE (test code = 2507) NEGATIVE TEST, [id number] 00:00:00 Test Item Value Reference Range Interpretation Comments HCG, QUALITATIVE (test code = 2507) NEGATIVE TEST, [id number] 00:00:00 Test Item Value Reference Range Interpretation Comments HCG, QUALITATIVE (test code = 2507) NEGATIVE BETA-HCG TUMOR [id number] 00:00:00 Test Item Value Reference Range Interpretation Comments TROPHOBLASTIC HCG (test code = <0.6 MIU/ML 92453) BETA-HCG TUMOR [id number] 00:00:00 Test Item Value Reference Range Interpretation Comments TROPHOBLASTIC HCG (test code = <0.6 MIU/ML 27245) TEST, [id number] 00:00:00 Test Item Value Reference Range Interpretation Comments HCG, QUALITATIVE (test code = 2507) NEGATIVE BETA-HCG TUMOR [id number] 00:00:00 Test Item Value Reference Range Interpretation Comments TROPHOBLASTIC HCG (test code = <0.6 MIU/ML 13604) TEST, [id number] 00:00:00 Test Item Value Reference Range Interpretation Comments HCG, QUALITATIVE (test code = 2507) NEGATIVE TEST, [id number] 00:00:00 Test Item Value Reference Range Interpretation Comments HCG, QUALITATIVE (test code = 2507) NEGATIVE TEST, [id number] 00:00:00 Test Item Value Reference Range Interpretation Comments HCG, QUALITATIVE (test code = 2507) NEGATIVE TEST, [id number] 00:00:00 Test Item Value Reference Range Interpretation Comments HCG, QUALITATIVE (test code = 2507) NEGATIVE BETA-HCG TUMOR [id number] 00:00:00 Test Item Value Reference Range Interpretation Comments TROPHOBLASTIC HCG (test code = <0.6 MIU/ML 41236) BETA-HCG TUMOR [id number] 00:00:00 Test Item Value Reference Range Interpretation Comments TROPHOBLASTIC HCG (test code = <0.6 MIU/ML 28005) BETA-HCG TUMOR [id number] 00:00:00 Test Item Value Reference Range Interpretation Comments TROPHOBLASTIC HCG (test code = <0.6 MIU/ML 77676) BETA-HCG TUMOR [id number] 00:00:00 Test Item Value Reference Range Interpretation Comments TROPHOBLASTIC HCG (test code = <0.6 MIU/ML 40588) BETA-HCG TUMOR [id number] 00:00:00 Test Item Value Reference Range Interpretation Comments TROPHOBLASTIC HCG (test code = <0.6 MIU/ML 43580) TEST, [id number] 00:00:00 Test Item Value Reference Range Interpretation Comments HCG, QUALITATIVE (test code = 2507) NEGATIVE TEST, [id number] 00:00:00 Test Item Value Reference Range Interpretation Comments HCG, QUALITATIVE (test code = 2507) NEGATIVE TEST, [id number] 00:00:00 Test Item Value Reference Range Interpretation Comments HCG, QUALITATIVE (test code = 2507) NEGATIVE BETA-HCG TUMOR [id number] 00:00:00 Test Item Value Reference Range Interpretation Comments TROPHOBLASTIC HCG (test code = <0.6 MIU/ML 09692) BETA-HCG TUMOR [id number] 00:00:00 Test Item Value Reference Range Interpretation Comments TROPHOBLASTIC HCG (test code = <0.6 MIU/ML 56752) BETA-HCG TUMOR [id number] 00:00:00 Test Item Value Reference Range Interpretation Comments TROPHOBLASTIC HCG (test code = <0.6 MIU/ML 45876) BETA-HCG TUMOR [id number] 00:00:00 Test Item Value Reference Range Interpretation Comments TROPHOBLASTIC HCG (test code = <0.6 MIU/ML 70461)
[2022-08-20 13:18] LABS: Urine Blood 3+ (Negative); Urine Glucose 2+ (Negative); Urine Protein 2+ (Negative); Urine Specific Gravity >=1.030 (1.005-1.030); Urine pH 5.5 (5.0-7.0)
[2022-08-20 13:37] LABS: Urine Bacteria <20 /HPF (<20); Urine Mucus 2+ /HPF (None Seen); Urine RBC >50 /HPF (None Seen)
[2022-08-20 13:44] LABS: Urine Specific Gravity/Preg >1.030 (1.005-1.030)
--- NOTE | 2022-08-20 14:29 | RAD REPORT ---
EXAM DESCRIPTION: US - Transvaginal OB - 08/20/2022 2:16 pm CLINICAL HISTORY: with vaginal bleeding COMPARISON: None. FINDINGS: The uterus measures 8 x 5 x 4 centimeters. 1 centimeter fluid collection is present within the lower uterine segment endometrial stripe. It cont ains tiny echogenic structure equivocal for a pole. Right ovary is normal in size and echotexture. Left ovary not seen secondary to overlying bowel gas. The right and left adnexa unremarkable No significant free fluid IMPRESSION: 1 centimeter fluid collection within the endometrium of the lower uterine segment. If th is is a gestational sac then it is low within the uterus. Other considerations are that this does not represent a gestational sac or that it represents a pseud o gestational sac associated with an ectopic . This all should be correlated clinically and with serial beta HCG levels. Followup endovaginal sonogram in 1 week recommended
[2022-08-20 14:59] LABS: Absolute Lymphocytes (CBC) 2.2 K/uL (0.7-4.9); Hematocrit 45.2 % (36.0-45.0); Lymphocytes % 22.4 % (15.3-44.8); MCV 81.2 fL (80-100); MPV 10.1 fL (7.6-11.3); RBC Red Blood Cell Count 5.57 M/uL (3.86-4.86)
[2022-08-20 15:16] LABS: Potassium 3.8 mmol/L (3.5-5.1)
--- NOTE | 2022-08-20 15:26 | ER ---
Nurse's Notes [facility] Name: Krystyna Colon Age: 46 yrs Sex: Female : 1975 Arrival Date: 08/20/2022 Time: 11:07 Bed 12 Private MD: Diagnosis: Threatened Presentation: 08/20 12:05 Chief complaint: Patient states: + , unknown gestation, has not seen OB yet, ph has some light spotting and cramping that started on Saturday, denies pain at this time. Coronavirus screen: Vaccine status: Patient reports receiving the 2nd dose of the covid vaccine. Ebola Screen: No symptoms or risks identified at this time. Initial Sepsis Screen: Does the patient meet any 2 criteria? No. Patient's initial sepsis screen is negative. Does the patient have a suspected source of infection? No. Patient's initial sepsis screen is negative. Risk Assessment: Do you want to hurt yourself or someone else? Patient reports no desire to harm self or others. Onset of symptoms was August 20, 2022. 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 - Social history:: Smoking status: Patient reports the use of cigarette tobacco products, denies chronic smoking, but will smoke occasionally. Screenin:25 [facility] ED Fall Risk Assessment (Adult) History of falling in the last 3 months, mb9 including since admission No falls in past 3 months (0 pts) Confusion or Disorientation No (0 pts) Intoxicated or Sedated No (0 pts) Impaired Gait No (0 pts) Mobility Assist Device Used No (0 pt) Altered Elimination No (0 pt) Score/Fall Risk Level 0 - 2 = Low Risk Oriented to surroundings, Maintained a safe environment, Educated pt \\T\\ family on fall prevention, incl call for assistance when getting out of bed. Abuse screen: Denies threats or abuse. Nutritional screening: No deficits noted. Tuberculosis screening: No symptoms or risk factors identified. Assessment: 15:20 Reassessment: pt brought back to ER room from [facility]. mb9 15:25 General: Appears in no apparent distress. comfortable. Pain: Denies pain. Neuro: mb9 Stanley Agitation-Sedation Scale (RASS): 0 - Alert and Calm Level of Consciousness is awake, alert, obeys commands, Oriented to person, place, time, situation, Appropriate for age. Cardiovascular: Rhythm is regular. Respiratory: Airway is patent Respiratory effort is even, unlabored, Respiratory pattern is regular, symmetrical. GI: Abdomen is round non-distended, Bowel sounds present X 4 quads. Abd is soft and non tender X 4 quads. Reports cramping. : No signs and/or symptoms were reported regarding the genitourinary system. : Reports "light spotting". EENT: No signs and/or symptoms were reported regarding the EENT system. Derm: Skin is pink, warm \\T\\ dry. Musculoskeletal: Range of motion: intact in all extremities. Vital Signs: 12:05 BP 110 / 74; Pulse 70; Resp 14; Temp 98.6; Pulse Ox 99% on R/A; ph ED Course: 11:07 Patient arrived in ED. mr 11:45 Flavia Ph[facility] F[facility]-C [facility] snw 11:45 Raysa Steinberg MD is Attending Physician. snw 12:07 Triage completed. ph 12:07 Arm band placed on Patient placed in waiting room, Patient notified of wait time. ph 13:20 Urine collected: clean catch specimen. bc6 14:18 US Transvaginal Ob In Process Unspecified. EDMS 14:47 Abo/rh Typing Sent. bc6 14:47 Basic Metabolic Panel Sent. bc6 14:48 CBC with Diff Sent. bc6 14:48 Quantitative Hcg Sent. bc6 14:48 Initial lab(s) drawn, by co, sent to lab. Inserted saline lock: 20 gauge in left bc6 antecubital area, using aseptic technique. 15:26 Adele Marlow, PHILIP is Primary Nurse. mb9 15:40 No provider procedures requiring assistance completed. IV discontinued, intact, mb9 bleeding controlled, No redness/swelling at site. Pressure dressing applied. Administered Medications: 15:37 Drug: Insulin Regular Human 5 units {Co-Signature: ss (Letty Stanton RN).} Route: mb9 Sub-Q; Site: right lower abdomen; 15:42 Follow up: Response: No adverse reaction mb9 15:38 Drug: Rocephin (cefTRIAXone) 1 grams Route: IM; Site: right gluteus; mb9 15:42 Follow up: Response: No adverse reaction mb9 Medication: 15:40 VIS not applicable for this client. mb9 Outcome: 15:26 Discharge ordered by MD. reid 16:01 Discharged to home ambulatory. mb9 16:01 Condition: stable 16:01 Discharge instructions given to patient, Instructed on discharge instructions, follow up and referral plans. Demonstrated understanding of instructions, follow-up care. 16:01 Patient left the ED. mb9 Signatures: Dispatcher [employer] EDMS Flavia Pham, ABIMBOLA-C COMPLIANCE PROJECT MANAGER-Csnw Adele Cruz Patricia RN RN Adele Marlow RN RN mb9 Kelley Meyers6 Letty Stanton RN ss
--- NOTE | 2022-08-20 15:27 | EDPHYS ---
Physician Documentation [facility] Name: Krystyna Colon Age: 46 yrs Sex: Female : 1975 Arrival Date: 08/20/2022 Time: 11:07 Bed 12 Private MD: ED Physician Raysa Steinberg HPI: 08/20 16:49 This 46 yrs old Female presents to ER via Ambulatory with complaints of snw , Abdominal Cramping. 16:49 The patient presents with vaginal bleeding that is spotting. Onset: The snw symptoms/episode began/occurred acutely. Modifying factors: The symptoms are alleviated by nothing, the symptoms are aggravated by nothing. The patient has not experienced similar symptoms in the past. The patient has not recently seen a physician. Pt states previous two pregnancies were uneventful. . 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 - Social history:: Smoking status: Patient reports the use of cigarette tobacco products, denies chronic smoking, but will smoke occasionally. ROS: 15:45 Constitutional: Negative for fever, chills, and weight loss, Eyes: Negative for injury, snw pain, redness, and discharge, ENT: Negative for injury, pain, and discharge, Neck: Negative for injury, pain, and swelling, Cardiovascular: Negative for chest pain, palpitations, and edema, Respiratory: Negative for shortness of breath, cough, wheezing, and pleuritic chest pain, Abdomen/GI: Negative for abdominal pain, nausea, vomiting, diarrhea, and constipation, Back: Negative for injury and pain, MS/Extremity: Negative for injury and deformity, Skin: Negative for injury, rash, and discoloration, Neuro: Negative for headache, weakness, numbness, tingling, and seizure, Psych: Negative for depression, anxiety, suicide ideation, homicidal ideation, and hallucinations. 15:45 : Positive for vaginal bleeding, missed period. Exam: 15:45 Constitutional: This is a well developed, well nourished patient who is awake, alert, snw and in no acute distress. Head/Face: Normocephalic, atraumatic. Eyes: Pupils equal round and reactive to light, extra-ocular motions intact. Lids and lashes normal. Conjunctiva and sclera are non-icteric and not injected. Cornea within normal limits. Periorbital areas with no swelling, redness, or edema. ENT: Nares patent. No nasal discharge, no septal abnormalities noted. Tympanic membranes are normal and external auditory canals are clear. Oropharynx with no redness, swelling, or masses, exudates, or evidence of obstruction, uvula midline. Mucous membranes moist. Neck: Trachea midline, no thyromegaly or masses palpated, and no cervical lymphadenopathy. Supple, full range of motion without nuchal rigidity, or vertebral point tenderness. No Meningismus. Chest/axilla: Normal chest wall appearance and motion. Nontender with no deformity. No lesions are appreciated. Cardiovascular: Regular rate and rhythm with a normal S1 and S2. No gallops, murmurs, or rubs. Normal PMI, no JVD. No pulse deficits. Respiratory: Lungs have equal breath sounds bilaterally, clear to auscultation and percussion. No rales, rhonchi or wheezes noted. No increased work of breathing, no retractions or nasal flaring. Abdomen/GI: Soft, non-tender, with normal bowel sounds. No distension or tympany. No guarding or rebound. No evidence of tenderness throughout. Back: No spinal tenderness. No costovertebral tenderness. Full range of motion. Skin: Warm, dry with normal turgor. Normal color with no rashes, no lesions, and no evidence of cellulitis. MS/ Extremity: Pulses equal, no cyanosis. Neurovascular intact. Full, normal range of motion. Neuro: Awake and alert, GCS 15, oriented to person, place, time, and situation. Cranial nerves II-XII grossly intact. Motor strength 5/5 in all extremities. Sensory grossly intact. Cerebellar exam normal. Normal gait. Psych: Awake, alert, with orientation to person, place and time. Behavior, mood, and affect are within normal limits. Vital Signs: 12:05 BP 110 / 74; Pulse 70; Resp 14; Temp 98.6; Pulse Ox 99% on R/A; ph MDM: 13:04 Patient medically screened. snw 15:27 Differential diagnosis: cervicitis, ectopic , implantation. snw 15:45 Data reviewed: vital signs, nurses notes, lab test result(s), radiologic studies, snw ultrasound. Care significantly affected by the following Social Determinants of Health: no care. Counseling: I had a detailed discussion with the patient and/or guardian regarding: the historical points, exam findings, and any diagnostic results supporting the discharge/admit diagnosis, lab results, radiology results, the need for outpatient follow up, to return to the emergency department if symptoms worsen or persist or if there are any questions or concerns that arise at home. Special discussion: Based on the history and exam findings, there is no indication for further emergent testing or inpatient evaluation. I discussed with the patient/guardian the need to see the OB Gyne specialist for further evaluation of the symptoms. I discussed with the patient/guardian the need to see the primary care provider for further evaluation of the symptoms. 16:59 ED course: pt states she has had some high blood sugar readings in the past, not snw treated for DM. 08/20 12:49 Order name: Urine Microscopic Only; Complete Time: 13:38 [facility] 08/20 13:18 Order name: Urine Dipstick-Ancillary; Complete Time: 13:18 [facility] 08/20 13:19 Order name: Urine --Ancillary (enter results); Complete Time: 13:46 bd 08/20 13:20 Order name: Urine Dipstick-Ancillary [facility] 08/20 13:40 Order name: Abo/rh Typing; Complete Time: 15:20 snw 08/20 13:40 Order name: Basic Metabolic Panel; Complete Time: 15:20 w 08/20 12:49 Order name: Urine Dipstick-Ancillary (obtain specimen); Complete Time: 13:20 w 08/20 12:49 Order name: Urine Test (obtain specimen); Complete Time: 13:20 w 08/20 13:40 Order name: CBC with Diff; Complete Time: 15:04 snw 08/20 13:40 Order name: Quantitative Hcg; Complete Time: 15:20 w 08/20 13:40 Order name: US Transvaginal Ob; Complete Time: 14:42 snw 08/20 13:41 Order name: Urine Culture [facility] 08/20 13:40 Order name: IV Saline Lock; Complete Time: 14:47 snw 08/20 13:40 Order name: Labs collected and sent; Complete Time: 14:47 snw 08/20 13:40 Order name: NPO; Complete Time: 15:27 snw Administered Medications: 15:37 Drug: Insulin Regular Human 5 units {Co-Signature: ss (Letty Stanton RN).} Route: mb9 Sub-Q; Site: right lower abdomen; 15:42 Follow up: Response: No adverse reaction mb9 15:38 Drug: Rocephin (cefTRIAXone) 1 grams Route: IM; Site: right gluteus; mb9 15:42 Follow up: Response: No adverse reaction mb9 Disposition Summary: 08/20/22 15:26 Discharge Ordered Location: Home snw Condition: Stable snw Diagnosis - Threatened snw Followup: snw - With: Emergency Department - When: As needed - Reason: Worsening of condition Followup: snw - With: Private Physician - When: Tomorrow - Reason: Recheck today's complaints, Continuance of care, Re-evaluation by your physician Discharge Instructions: - Discharge Summary Sheet snw - Hyperglycemia snw - Care snw - Threatened Miscarriage snw - Vaginal Bleeding During , First Trimester snw Forms: - Medication Reconciliation Form snw - Thank You Letter snw - Antibiotic Education snw - Prescription Opioid Use snw Signatures: Dispatcher [employer] Flavia Alvarez, JENNIFERC SLEEP MANAGER-Csnw Crys Mcdaniel, RN RN Adele Guajardo RN RN mb9 Ltety tamez
[2022-08-20] MEDS ORDERED: CEFTRIAXONE 1000 MG/VIAL ONE (15:36)
[2022-08-20] MEDS ORDERED: INSULIN -REGULAR HUMAN 50 UNIT/0.5 ML ML ONE (15:36)
[2022-08-20 17:14] VITALS: BP 110/74; TEMP 98.6; O2SAT 99
== END 2022-08-20 16:01 | disposition home or self-care (01) ==
LOC: ER 11:05
DX: O20.0 Threatened abortion (principal); O99.330 Smoking (tobacco) complicating pregnancy, unspecified trimester; F17.210 Nicotine dependence, cigarettes, uncomplicated; Z3A.00 Weeks of gestation of pregnancy not specified; Z91.048 Other nonmedicinal substance allergy status
CPT/HCPCS: 87088; 85025; 87086; 80048; 36415; 86900; 81025; 86901; 84702; 76817; J1815; 81003; 81015; 96372; 99284